=== PATIENT | female | born 1980 | race Caucasian/White ===

== ENCOUNTER 2017-03-11 10:40 | Observation (INO) | payer OTHER ==
[~2017-03-11] VITALS: Ht 157.5 cm; Wt 99.8 kg
[~2017-03-11 10:40] MED LIST: FLEXERIL10 MG PO; MEDROXYPRO150 MG/11 IM; MOTRIN 600 MG600 MG PO; PREDNISONE 20MG20 MG PO; XANAX0.5 M1 PO
--- NOTE | 2017-03-11 10:46 | ED GENERAL ADULT ---
See Addendum History of Present Illness General Chief Complaint: Nausea, Vomiting, Diarrhea Stated Complaint: BIBA N/V/D Source: patient Exam Limitations: no limitations Vital Signs & Intake/Output Vital Signs & Intake/Output Vital Signs Date Time Temp Pulse Resp B/P B/P Pulse O2 O2 Flow FiO2 Mean Ox Delivery Rate 03/11 1355 75 20 140/78 98 Room Air 03/11 1209 74 20 147/80 100 Room Air 03/11 1046 98.0 87 20 169/95 98 Room Air Allergies Coded Allergies: NO KNOWN ALLERGIES (09/20/13) Reconcile Medications Alprazolam (Xanax) 0.5 MG TABLET 1 TAB PO BID PRN ANXIETY Medroxyprogesterone Acetate 150 MG/1 ML SYRINGE 1 ML IM Q3M CONTROL ( Reported) Triage Nurses Notes Reviewed? yes Onset: Abrupt Duration: hour(s): Timing: recent history HPI: 03/11/17 11:01AM 36 female presents to the ED with abdominal pain, nausea, diarrhea with blood x 2 episodes since 6:30 this morning. Patient states pain was abrupt and severe described as similar to previous episodes recently. Abdominal pain is constant. Patient denies dysuria. Uses depo for contraception. The onset of the symptoms were abrupt, the duration was just the past several hours, the severity is significant; as her symptoms required her to come to the emergency department for care. She has associated nausea vomiting and diarrhea. The patient is status post upper and lower endoscopy. She was told that she has irritable bowel syndrome. Past History Travel History Traveled to [place] past 21 day No Medical History Any Pertinent Medical History? see below for history Neurological: NONE EENT: NONE Cardiovascular: NONE Respiratory: NONE Gastrointestinal: abdominal pain Hepatic: NONE Renal: NONE Musculoskeletal: NONE Psychiatric: NONE Endocrine: NONE Surgical History Surgical History: none Psychosocial History What is your primary language Armenian Family History Hx Contributory? No Review of Systems Review of Systems Constitutional: Denies: fever. EENTM: Reports: no symptoms. Respiratory: Reports: no symptoms. Cardiovascular: Reports: no symptoms. GI: Reports: abdominal pain, diarrhea, nausea, bloody stool, vomiting. Genitourinary: Reports: no symptoms. Musculoskeletal: Reports: no symptoms. Skin: Reports: no symptoms. Neurological/Psychological: Reports: no symptoms. Hematologic/Endocrine: Reports: bleeding. Immunologic/Allergic: Reports: no symptoms. Physical Exam Physical Exam General Appearance: well developed/nourished, alert, awake, anxious, moderate distress Head: atraumatic, normal appearance, dry mucous membranes Eyes: Bilateral: normal appearance, PERRL, EOMI. Ears, Nose, Throat: normal pharynx, dry mucous membranes Neck: full range of motion Respiratory: normal breath sounds, no respiratory distress Cardiovascular: regular rate/rhythm Gastrointestinal: soft, tenderness, no rebound or guarding. Epigastric abdominal tenderness Back: normal range of motion Extremities: no edema Neurologic/Psych: no motor/sensory deficits, awake, alert, oriented x 3 Skin: intact, normal color, diaphoresis Core Measures ACS in differential dx? No CVA/TIA Diagnosis: No Severe Sepsis Present: No Septic Shock Present: No Progress Differential Diagnoses I considered the following diagnoses in my evaluation of the patient: [ gastroenteritis, IBS, pancreatitis, colitis, diverticulitis, gastritis, PUD, appendicitis, , pyelonephritis, opiate withdrawal] Plan of Care: Orders Procedure Date/time Status EKG 03/11 1148 Active URINALYSIS 03/11 1059 Complete LIPASE 03/11 1059 Complete HUMAN BETA HCG SCREEN 03/11 1059 Complete COMPREHENSIVE METABOLIC PANEL 03/11 1059 Complete CBC WITHOUT DIFFERENTIAL 03/11 1059 Complete AMYLASE 03/11 1059 Complete Laboratory Tests 03/11/17 1240: Urinalysis LIGHT H, Urine Color YEL, Urine Clarity CLEAR, Urine pH 6.5, Ur Specific [place] 1.020, Urine Protein NEG, Urine Ketones TRACE H, Urine Nitrite NEG, Urine Bilirubin NEG, Urine Urobilinogen 0.2, Ur Leukocyte Esterase NEG, Ur Microscopic SEDIMENT EXAMINED, Urine RBC 1-3, Ur Epithelial Cells MANY H, Urine Bacteria MOD H, Urine Mucus MOD H, Urine Hemoglobin TRACE-LYSED, Urine Glucose NEG 03/11/17 1112: Anion Gap 13, Estimated GFR > 60, BUN/Creatinine Ratio 28.3 H, Glucose 130 H, Calcium 9.6, Total Bilirubin 0.5, AST 22, ALT 26, Alkaline Phosphatase 62, Total Protein 7.2, Albumin 4.5, Globulin 2.7, Albumin/Globulin Ratio 1.7, Amylase 98, Lipase 99, Total Beta HCG NEGATIVE, CBC w Diff NO MAN DIFF REQ, RBC 4.91, MCV 91.9, MCH 30.3, RDW 14.2, MPV 7.1 L, Gran % 80.1 H, Lymphocytes % 14.5 L, Monocytes % 4.3, Eosinophils % 0.2, Basophils % 0.9, Absolute Granulocytes 6.2, Absolute Lymphocytes 1.1 L, Absolute Monocytes 0.3, Absolute Eosinophils 0, Absolute Basophils 0.1, PUBS MCHC 33.0 Initial ED EKG: none Departure Departure Disposition: STILL A PATIENT Condition: Stable Clinical Impression Primary Impression: Abdominal pain Referrals: PATIENT HAS NO PRIMARY CARE DR (PCP/Family) Departure Forms: Customer Survey General Discharge Information Comments The patient was treated with IV fluids, IV Dilaudid, IV Zofran, and IV Protonix. Labs were sent and she'll be reevaluated. Labs unremarkable. Patient's pain is better. CT of the abdomen and pelvis was unremarkable. Other than small hiatal hernia PATIENT: MISAEL VILLA PRESENT AGE: 36 PATIENT ACCOUNT NO: [id number] : 78 LOCATION: [facility] ORDERING PHYSICIAN: FREDDIE GATES DO SERVICE DATE: 03/11/17 EXAM TYPE: CAT - CT ABD & PELVIS W IV CONTRAST EXAMINATION: CT ABDOMEN AND PELVIS WITH CONTRAST CLINICAL INFORMATION: Abdominal pain. COMPARISON: 09/21/2013. TECHNIQUE: Contiguous axial thin section helical images of the abdomen and pelvis were performed following the administration of 95 mL of intravenous Optiray 320. The data set was reformatted in the coronal and sagittal planes and reviewed on an independent workstation. DLP: 1086 mGy-cm. FINDINGS: The visualized lung bases are clear. The visualized portions of the heart are unremarkable. There is a [id number] sized hiatal hernia. The liver is of normal size and attenuation without focal lesions nor intrahepatic biliary ductal dilation. A normal gallbladder is identified. There is no wall thickening or discernible pericholecystic fluid. The spleen, pancreas, adrenal glands are unremarkable. Both kidneys are of normal size and attenuation without hydronephrosis or nephrolithiasis. Following the administration of IV contrast, prompt symmetric nephrograms are displayed. There is no abdominal free fluid. There is neither mesenteric nor retroperitoneal lymphadenopathy. There is a retroaortic left renal vein. Normal unopacified loops of small and large bowel are identified. A normal appendix is identified. There is no pelvic free fluid. The urinary bladder is unremarkable. There is neither pelvic nor inguinal lymphadenopathy. Bone windows: Neither sclerotic nor lytic bone lesions are identified. IMPRESSION: No evidence for acute abdominal or pelvic inflammatory or infectious processes. Specifically, a normal appendix is identified. [id number]-ql-[id number] sized hiatal hernia. DICTATED BY: DIANE JAIMES MD DATE/TIME DICTATED:03/11/171418 PAD CUTTER:SONDRA DATE/TIME TRANSCRIBED:03/11/171418 CONFIDENTIAL, DO NOT COPY WITHOUT APPROPRIATE AUTHORIZATION. <Electronically signed in Other Vendor System> SIGNED BY: DIANE JAIMES MD 03/11/17 1428 Critical Care Note Critical Care Note Critical Care Time: non-applicable
[2017-03-11 11:20] LABS: ABSOLUTE BASOPHIL COUNT 0.1 /CUMM (0.0-0.2); ABSOLUTE EOSINOPHIL COUNT 0 /CUMM (0.0-0.7); ABSOLUTE GRANULOCYTE CT 6.2 /CUMM (1.4-6.5); ABSOLUTE LYMPH COUNT 1.1 /CUMM (1.2-3.4); ABSOLUTE MONOCYTE COUNT 0.3 /CUMM (0.10-0.60); BASOPHIL % 0.9 % (0.0-2.0); EOSINOPHIL % 0.2 % (0-5); GRANULOCYTE % 80.1 % (42.2-75.2); HEMATOCRIT 45.1 % (37-47); MEAN CORPUSCULAR HGB 30.3 PG (27.0-31.0); MEAN CORPUSCULAR VOLUME 91.9 FL (81.0-99.0); MEAN PLATELET VOLUME 7.1 FL (7.4-10.4); PLATELET COUNT 320 /CUMM (130-400); RBC DISTRIBUTION WIDTH 14.2 % (11.5-14.5); RED BLOOD CELL CT 4.91 /CUMM (4.20-5.40); WHITE BLOOD CELL COUNT 7.7 /CUMM (4.8-10.8)
--- NOTE | 2017-03-11 14:28 | CT SCAN REPORT ---
EXAMINATION: CT ABDOMEN AND PELVIS WITH CONTRAST CLINICAL INFORMATION: Abdominal pain. COMPARISON: 09/21/2013. TECHNIQUE: Contiguous axial thin section helical images of the abdomen and pelvis were performed following the administration of 95 mL of intravenous Optiray 320. The data set was reformatted in the coronal and sagittal planes and reviewed on an independent workstation. DLP: 1086 mGy-cm. FINDINGS: The visualized lung bases are clear. The visualized portions of the heart are unremarkable. There is a cxwsq-kv-kurplzdr sized hiatal hernia. The liver is of normal size and attenuation without focal lesions nor intrahepatic biliary ductal dilation. A normal gallbladder is identified. There is no wall thickening or discernible pericholecystic fluid. The spleen, pancreas, adrenal glands are unremarkable. Both kidneys are of normal size and attenuation without hydronephrosis or nephrolithiasis. Following the administration of IV contrast, prompt symmetric nephrograms are displayed. There is no abdominal free fluid. There is neither mesenteric nor retroperitoneal lymphadenopathy. There is a retroaortic left renal vein. Normal unopacified loops of small and large bowel are identified. A normal appendix is identified. There is no pelvic free fluid. The urinary bladder is unremarkable. There is neither pelvic nor inguinal lymphadenopathy. Bone windows: Neither sclerotic nor lytic bone lesions are identified. IMPRESSION: No evidence for acute abdominal or pelvic inflammatory or infectious processes. Specifically, a normal appendix is identified. Oczsv-[id number] sized hiatal hernia.
[2017-03-11] MEDS ORDERED: REGLAN10 M1 PO (15:21)
--- NOTE | 2017-03-11 19:37 | History & Physical ---
NIMESH HERNANDEZ MD 03/11/171935: General Information and HPI MD Statement: I have seen and personally examined MISAEL VILLA and documented this H&P. The patient is a 36 year old F who presented with a patient stated chief complaint of [intractable abdominal pain, nausea, vomiting, diarrhea]. Source of Information: patient Exam Limitations: no limitations History of Present Illness: 36-year-old female, with past medical history of irritable bowel syndrome, status post upper endoscopy and, colonoscopy, hemorrhoids, anxiety, presented for nausea, vomiting, diarrhea, abdominal pain. She woke up at 6:30 AM in the morning with nausea, and has vomited at least 10 times, initially vomited juice and chunks of food from the night prior. She has not been eating all day, and now is only dry heaving. She also had 4-5 episodes of diarrhea, blood in the stool. However in the past she has had blood mixed with her stool. Yesterday, she ate [employer] for lunch and homemade hot dog for dinner. She is experiencing periumbilical pain, mostly above the umbilicus, rated as 8 out of 10, crampy, sharp, constant. This pain is different from her chronic abdominal pain. 2 years ago, she was admitted at [place] for similar symptoms, for which upper endoscopy and colonoscopy was done, which did not reveal any significant findings. Patient was prescribed Augmentin on 02/26/2017 for sinusitis. She did not take the last 2 pills because she developed diarrhea and yeast infection. Patient takes Xanax for anxiety. She has been advised to take Klonopin instead, but has refused. CT INSPECTOR BALANCE BRIDGE reviewed. She was prescribed 15 pills of 0.5 mg clonazepam on 12/26/2016 with 1 refill, filled on 12/26/2016 and 02/06/2017. She was prescribed 30 pills of alprazolam 0.5 mg tablet on 08/26/2016 with 1 refill, filled on 08/26/2016 and 10/28/2016. These were prescribed by Abdoulaye Shelley. In the ED, she received 0.5 mg of IV Dilaudid, 1 mg of IV Dilaudid, 30 mg of IV Toradol, 20 mg of dicyclomine, 2 times Ativan, one time Reglan, 1 time Phenergan , one-time Zofran, one-time IV Protonix, 3 L of normal saline, none of which have significantly improve her symptoms. Israel Bonner MD from GI was contacted by the ED, and he recommended putting the patient under observation for intractable pain and nausea. Review of system, she reports feeling hot and cold, lightheaded, dizzy, short of breath. Past surgical history: Tonsillectomy Medications: Xanax, medroxyprogesterone, Lexapro, losartan Allergies: None Family history: Hypertension, and diabetes in both her parents Social history: She works at a [employer]. Denies alcohol, smoking, illicit drug use. Allergies/Medications Allergies: Coded Allergies: NO KNOWN ALLERGIES (09/20/13) Past History Travel History Traveled to [place] past 21 day No Medical History Neurological: NONE EENT: NONE Cardiovascular: NONE Respiratory: NONE Gastrointestinal: irritable bowel syndrome, hemorrhoids Hepatic: NONE Renal: NONE Musculoskeletal: NONE Psychiatric: NONE Endocrine: NONE Surgical History Surgical History: none Past Family/Social History Family History Relations & Conditions if any MOTHER FH: diabetes mellitus FH: hypertension FATHER FH: diabetes mellitus FH: hypertension Psychosocial History Where do you live? Home Smoking Status: Never Smoked ETOH Use: denies use Illicit Drug Use: denies illicit drug use Functional Ability ADLs Independent: dressing, eating, toileting, bathing. Ambulation: independent IADLs Independent: shopping, housework, finances, food prep, telephone, transportation , medication admin. Review of Systems Review of Systems Constitutional: Reports: see HPI, chills, fever. EENTM: Denies: visual changes. Cardiovascular: Denies: chest pain, edema, palpitations. Respiratory: Reports: short of breath. Denies: cough. GI: Reports: abdominal pain, diarrhea, nausea, bloody stool, vomiting. Genitourinary: Denies: dysuria. Exam & Diagnostic Data Last 24 Hrs of Vital Signs/I&O Vital Signs Date Time Temp Pulse Resp B/P B/P Pulse O2 O2 Flow FiO2 Mean Ox Delivery Rate 03/110 97.5 93 19 124/78 99 Room Air 03/112 Room Air 03/11 2055 97.3 89 18 147/76 99 Room Air 03/11 1545 70 20 138/72 98 03/11 1355 75 20 140/78 98 Room Air 03/11 1209 74 20 147/80 100 Room Air 03/11 1046 98.0 87 20 169/95 98 Room Air Intake & Output 03/12 0800 03/12 0000 03/11 1600 Intake Total 556 715 2584 Output Total Balance 898 318 1238 Intake, IV 800 1000 Intake, Oral 0 120 Patient 99.79 kg 99.79 kg Weight Physical Exam General Appearance Alert, Oriented X3, Cooperative, Mild Distress Skin No Rashes, No Breakdown, No Significant Lesion Skin Temp/Moisture Exam: Warm/Dry Sepsis Skin Exam (color): Normal for Ethnicity HEENT Atraumatic, PERRLA, EOMI, dry mucous membranes Neck Supple, No JVD, +2 Carotid Pulse wo Bruit, No LAD Lymphatic Axillary nl, Cervical nl Cardiovascular Regular Rate, Normal S1, Normal S2, No Murmurs, Gallops, Rubs Lungs Clear to Auscultation, Normal Air Movement Abdomen Normal Bowel Sounds, Soft, tender over periumbilical area, just above the umbilicus Neurological Normal Speech, Strength at 5/5 X4 Ext Extremities No Edema Vascular Normal Pulses, Pulses Symmetrical Last 24 Hrs of Labs/Humberto: 03/11/17 2220: Lactic Acid 1.5 03/11/17 1240: Urine Opiates Screen 268.00, Methadone Screen 49, Barbiturate Screen < 60, Ur Phencyclidine Scrn < 6.00, Amphetamines Screen < 100, U Benzodiazepines Scrn < 85, Urine Cocaine Screen < 50, Urine Cannabis Screen > 80.00 H, Urinalysis LIGHT H, Urine Color YEL, Urine Clarity CLEAR, Urine pH 6.5, Ur Specific [place] 1.020, Urine Protein NEG, Urine Ketones TRACE H, Urine Nitrite NEG, Urine Bilirubin NEG, Urine Urobilinogen 0.2, Ur Leukocyte Esterase NEG, Ur Microscopic SEDIMENT EXAMINED, Urine RBC 1-3, Ur Epithelial Cells MANY H, Urine Bacteria MOD H, Urine Mucus MOD H, Urine Hemoglobin TRACE-LYSED, Urine Glucose NEG 03/11/17 1112: Anion Gap 13, Estimated GFR > 60, BUN/Creatinine Ratio 28.3 H, Glucose 130 H, Lactic Acid 2.3 H, Calcium 9.6, Total Bilirubin 0.5, AST 22, ALT 26, Alkaline Phosphatase 62, Total Protein 7.2, Albumin 4.5, Globulin 2.7, Albumin/Globulin Ratio 1.7, Amylase 98, Lipase 99, Total Beta HCG NEGATIVE, CBC w Diff NO MAN DIFF REQ, RBC 4.91, MCV 91.9, MCH 30.3, RDW 14.2, MPV 7.1 L, Gran % 80.1 H, Lymphocytes % 14.5 L, Monocytes % 4.3, Eosinophils % 0.2, Basophils % 0.9, Absolute Granulocytes 6.2, Absolute Lymphocytes 1.1 L, Absolute Monocytes 0.3, Absolute Eosinophils 0, Absolute Basophils 0.1, PUBS MCHC 33.0 Microbiology 03/12 0013 STOOL: Clostridium difficile Toxin A & B - COLB Diagnostic Data EKG Results EKG revealed normal sinus rhythm, heart rate of 78, no ST-T changes, normal axis , QTC of 433 and IN interval of 144. Other Results EXAM TYPE: CAT - CT ABD & PELVIS W IV CONTRAST EXAMINATION: CT ABDOMEN AND PELVIS WITH CONTRAST CLINICAL INFORMATION: Abdominal pain. COMPARISON: 09/21/2013. TECHNIQUE: Contiguous axial thin section helical images of the abdomen and pelvis were performed following the administration of 95 mL of intravenous Optiray 320. The data set was reformatted in the coronal and sagittal planes and reviewed on an independent workstation. DLP: 1086 mGy-cm. FINDINGS: The visualized lung bases are clear. The visualized portions of the heart are unremarkable. There is a [id number]-vb-vswynokc sized hiatal hernia. The liver is of normal size and attenuation without focal lesions nor intrahepatic biliary ductal dilation. A normal gallbladder is identified. There is no wall thickening or discernible pericholecystic fluid. The spleen, pancreas, adrenal glands are unremarkable. Both kidneys are of normal size and attenuation without hydronephrosis or nephrolithiasis. Following the administration of IV contrast, prompt symmetric nephrograms are displayed. There is no abdominal free fluid. There is neither mesenteric nor retroperitoneal lymphadenopathy. There is a retroaortic left renal vein. Normal unopacified loops of small and large bowel are identified. A normal appendix is identified. There is no pelvic free fluid. The urinary bladder is unremarkable. There is neither pelvic nor inguinal lymphadenopathy. Bone windows: Neither sclerotic nor lytic bone lesions are identified. IMPRESSION: No evidence for acute abdominal or pelvic inflammatory or infectious processes. Specifically, a normal appendix is identified. [id number] sized hiatal hernia. DICTATED BY: DIANE JAIMES MD DATE/TIME DICTATED:03/11/171418 EXAM TYPE: US - US-LIMITED ABDOMEN EXAMINATION: US ABDOMEN LIMITED CLINICAL INFORMATION: Abdominal pain.. COMPARISON: None TECHNIQUE: Real-time imaging of the right upper quadrant abdominal viscera. FINDINGS: PANCREAS: The body and head of pancreas is homogeneous in echotexture. The talus obscured by overlying gas. LIVER: The liver is enlarged and has increased echogenicity. No focal mass or intrahepatic ductal dilatation seen. GALLBLADDER: Normal. The gallbladder is physiologically distended without evidence of stones, sludge, polyps, wall thickening or pericholecystic fluid. COMMON BILE DUCT: Normal in caliber measuring 0.34 cm in diameter. RIGHT KIDNEY: Normal. No hydronephrosis. No renal calculi or focal parenchymal lesions. The kidney measures 10.8 cm in maximum dimension. FREE FLUID: None. IMPRESSION: Enlarged echogenic liver without focal lesion. Findings suspicious for early hepatic steatosis. Rest of the visualized limited abdomen exam is unremarkable. DICTATED BY: SWATI VARGAS,ELIDIA DATE/TIME DICTATED:03/11/171931 Assessment/Plan Assessment: 36-year-old female, with past medical history of irritable bowel syndrome, status post upper endoscopy and, colonoscopy, hemorrhoids, anxiety, presented for nausea, vomiting, diarrhea, abdominal pain. In the ED, she received 0.5 mg of IV Dilaudid, 1 mg of IV Dilaudid, 30 mg of IV Toradol, 20 mg of dicyclomine, 2 times Ativan, one time Reglan, 1 time Phenergan, one-time Zofran, one-time IV Protonix, 3 L of normal saline, none of which have significantly improve her symptoms. Israel Bonner MD from GI was contacted by the ED, and he recommended putting the patient under observation for intractable pain and nausea. Imaging so far is unrevealing, specifically no evidence of acute abdominal pelvic inflammation, infection,with normal appearing appendix. Ultrasound shows enlarged liver, possibly early hepatic steatosis. Symptoms are most likely due to underlying irritable bowel syndrome, with possible viral gastroenteritis. Given recent history of antibiotic use, C. difficile colitis remains in differential. Patient will be kept nothing by mouth. She will remain under observation pending improvement of nausea, abdominal pain, and diarrhea. Pending C. difficile results. Problem list: # Intractable abdominal pain, nausea, vomiting, diarrhea # Hypertension # Anxiety and depression # Intractable abdominal pain, nausea, vomiting, diarrhea - lactic acid was elevated at 2.3 on presentation to the ED, has come down to 1.5 with IVF * Place in inpatient observation * Phenergan 25 mg every 4, when necessary Zofran 4 mg every 6 nausea * IV Protonix * Toradol 50 mg twice a day PRN severe pain, IV Tylenol moderate pain, by mouth Tylenol mild pain. Avoid opiates if possible * Consider GI consult * Follow-up C. difficile * 100 mL per hour 3 bags * Follow off antibiotics * Nothing by mouth, advanced diet as tolerated, clear liquid in am # Hypertension * Continue Losartan 25 mg daily # Anxiety and depression - CTPMP reviewed, she was prescribed 15 pills of 0.5 mg clonazepam on 12/26/2016 with 1 refill, filled on 12/26/2016 and 02/06/2017. She was prescribed 30 pills of alprazolam 0.5 mg tablet on 08/26/2016 with 1 refill, filled on 08/26/2016 and 10/28/2016. These were prescribed by Abdoulaye Shelley. - Utox + cannabis * Continue Lexapro 20 mg daily, Xanax 0.5 mg twice a day when necessary anxiety * Melatonin 5 mg at bedtime Diet: NPO PP: Toradol 50 mg twice a day PRN severe pain, IV Tylenol moderate pain, by mouth Tylenol mild pain DVT ppx: alps and heparin sc FULL CODE As Ranked By This Provider Problem List: 1. Abdominal pain Core Measures/Miscellaneous Acute Coronary Syndrome ACS Diagnosis: No Cerebrovascular Accident CVA/TIA Diagnosis: No Congestive Heart Failure CHF Diagnosis: No Venous Thromboembolism VTE Risk Factors: Obesity No Mech VTE prophylaxis d/t: No contraindications No VTE Pharm Prophylaxis d/t: No contraindications VTE Diagnosis: No VTE Type: NONE VTE Confirmed by (Test): NONE Severe Sepsis Severe Sepsis Present: No Septic Shock Septic Shock Present: No Miscellaneous Documentation Attending Case Discussed With: ALCIDES GALLAGHER MD Primary Care Physician: PATIENT HAS NO PRIMARY CARE DR Patient sees these Specialists Abdoulaye Shelley NP Level of Patient Care: General Medicine IDALIA PRESTON 03/11/17 2002: General Information and HPI Allergies/Medications Home Med list Alprazolam (Xanax) 0.5 MG TABLET 1 TAB PO BID PRN ANXIETY Escitalopram Oxalate (Lexapro) 20 MG TABLET 1 TAB PO DAILY MENTAL HEALTH ( Reported) Losartan Potassium 25 MG TABLET 1 TAB PO DAILY HTN (Reported) Medroxyprogesterone Acetate 150 MG/1 ML SYRINGE 1 ML IM Q3M CONTROL ( Reported) Metoclopramide HCl (Reglan) 10 MG TABLET 1 TAB PO 4 TIMES/DAY PRN nausea 30 minutes before meals and bedtime Resident Review Statement Resident Statement: examined this patient, discussed with mechanical engineering intern, agreed with mechanical engineering intern, discussed with family, reviewed EMR data (avail), discussed with nursing , discussed with case mgmt, reviewed images, amended to note Other Findings: 36-year-old female with a past medical history of anxiety, irritable bowel syndrome presented to the ED with chief was abdominal pain, nausea, diarrhea with bloody episodes since 6:30 this morning. According to the patient she was in her usual state of health up until his morning at around 6:30 AM she started to have intractable nausea and vomiting as well as bloody diarrhea. She states that she's had about 10 episodes of bilous vomiting and is bringing up whatever she had last night. Of note she had [employer] yesterday for lunch and had hot dogs for dinner last night. She also endorses abdominal pain that she describes as being crampy, rating it at an 8 out of 10; endorses intermittent fever and chills. She does endorse dizziness and headache, however, denies any shortness of breath, chest discomfort, palpitations, urinary complaints including burning micturition. She states that she does have blood in her stools that is mixed and has had intermittent episodes since she was diagnosed with irritable bowel syndrome about 2 years ago when she underwent an upper and lower endoscopy at [place]. She does not F/U with GI doctor. SHe dneies using any recreational drugs, smoking, RR 18. As far as her occupation she works at a [employer]. Surgical history pertinent for a tonsillectomy when she was a child. Family history pertinent for hypertension and diabetes in her family. Of note she was treated with Augmentin which she stopped taking it she started to experience diarrhea. For rest of the history and physical please refer to Dr. Hernandez's note above. Of note patient is status post upper and lower endoscopy and was told that she has irritable bowel syndrome. Vitals at the time of admission blood pressure 138/72, respiratory rate 20, pulse 70, saturating 98% on room air. On physical exam she is alert and oriented 3 and in mild distress sitting, in bed. HEENT revealed PERRLA, dry mucous membranes. Examination of the neck did not reveal an elevated JVP, no cervical lymphadenopathy.Cardiovascular exam pertinent for normal S1, S2, no murmurs rubs or gallops appreciated. Respiratory exam was benign with chest clear to auscultation bilaterally. Abdominal exam pertinent for tenderness to palpation in the periumbilical area, Jhaveri's was negative. Bowel sounds were normal in all 4 quadrants. Abdomen was soft. Examination of the lower extremities did not reveal any edema, pulses were intact bilaterally. Neuro exam was grossly unremarkable. Labs pertinent for an H&H of 14.9/41.5, white blood cell count of 7.7, platelet count of 320,000. Serum chemistries pertinent for sodium of 140, potassium of 4.9, bicarbonate of 22, anion gap of 13, BUN 17 and creatinine of 0.6 with serum glucose of 1:30. She is unremarkable with AST/L2 22/56, alkaline phosphatase of 62, beta-hCG is negative. UA revealed trace amount of ketones, for nitrite and leukocyte esterase. A moderate amount of bacteriuria and mucus. CAT scan of the abdomen and pelvis revealed no evidence of acute pulmonary abdominal pelvic inflammatory or infectious process, did have small to moderate- sized hiatal hernia Abdominal ultrasound showed an enlarged echogenic liver without focal lesion, findings suspicious for early hepatic steatosis. Gallbladder is physiologically distended without evidence of stones large polyps wall thickening or pericholecystic fluid. EKG revealed normal sinus rhythm, heart rate of 78, no ST-T changes, normal axis , QTC of 433 and IN interval of 144. In the ER she received normal saline bolus of thousand mL 1, Protonix 40 mg IV by mouth, Dilaudid 1 mg IV 1, Bentyl 20 mg by mouth 1. Assessment and plan Place under observation on general medicine. #Intractable nausea, vomiting and diarrhea in the setting of abdominal pain. Differentials include gasteroenteritis vs gastritis vs IBS flare vs cholecystitis (Jhaveri's was negative), pancreatitis (unlikley as lipase was negative). Will hydrate her either NS@100mls/hr F/U repeat lactic acid Sympyommatic treatment iwth Phenargan for nausea, Protonix 40mg IV NPO fo now. Check U tox, stool for C. Diff toxin. Will check CTPMP, and avoid narcotics for now. #Hypertension Continue on her home medications of Cozaar 25 mg daily #Anxiety Continue on his citalopram 20 mg daily, and Xanax 0.5 mg twice a day when necessary by mouth - DVT prophylaxis Heparin 5000units 3 times a day subcutaneous Diet Nothing by mouth for now Advance diet as tolerated next line CODE STATUS Full code ALCIDES GALLAGHER 03/12/17 0323: Attending MD Review Statement Attending Statement Attending MD Statement: examined this patient, discuss w/resident/PA/PRODUCTION SAMPLER, agreed w/resident/PA/PRODUCTION SAMPLER, reviewed EMR data (avail), reviewed images, amended to note Attending Assessment/Plan: CC: abdo pain, nausea, vomiting, diarrhea PMH: IBS-d, anxiety, vertigo, HTN Patient has chronic diarrhea secondary to IBS but this morning she noticed more frequent watery stools 4-5 in number, nausea, 10 times vomiting, nonbloody, nonbilious. She noticed some blood in her stool, mixed with stool, no associated dizziness, loss of consciousness, presyncopal symptoms. Patient complains of abdominal pain just above her umbilicus, nonradiating, non-shifting. Off note patient was recently treated for sinusitis with Augmentin, she stopped it secondary to yeast infection and diarrhea. Vitals: Afebrile, pulse, RF, blood pressure, O2 saturation in acceptable range. On examination: A O 3, cooperative, obese, no acute distress, neck supple, JVD normal, no lymphadenopathy, mucosa dry, no focal neurological deficit, no dependent edema, no obvious skin rashes or inflammation CVS: S1-S2, RRR. RS: Clear to auscultate bilaterally. Abdomen: Soft, NT, ND, bowel sounds present. Labs: WBC 7.7 with neutrophils 80%, hemoglobin 14.9, hematocrit 45.1, platelets 320, bicarbonate 22, anion gap 13, BUN 17, creatinine 0.6, glucose 130, calcium 9.6, LFT unremarkable, lactate 2.3, lipase 99. UA positive for ketones CT abdomen and pelvis: No evidence for acute abdominal or pelvic inflammatory or infectious processes. Specifically, a normal appendix is identified. Small-to- moderate sized hiatal hernia. Ultrasound abdomen: Enlarged echogenic liver without focal lesion. Findings suspicious for early hepatic steatosis. Rest of the visualized limited abdomen exam is unremarkable. A and P 36-year-old female with a past medical history significant for IBS-d, comes for nausea vomiting diarrhea and abdominal pain. Patient does not have any significant volume contraction on examination or on BMP, LFT unremarkable, lipase normal, CT abdomen and ultrasound abdomen is unremarkable no obvious cause of nausea vomiting diarrhea is noticed patient did not have any further episodes once admitted. Probably symptoms are related to IBS. Patient received Dilaudid, Zofran, Protonix, normal saline, Phenergan, Bentyl, Reglan, Toradol in ER. Given her recent use of antibiotics it is appropriate to check C. difficile given her diarrhea + Diarrhea + Nausea vomiting + Abdominal pain - Place in observation in general medicine floor - Continue gentle hydration with IV normal saline - Continue Zofran as required - Trend lactate - Nothing by mouth for tonight, advance clears in morning - Continue Protonix 40 mg by mouth daily - Check C. difficile, U tox - Review patient on CT/DCP, avoid opiates if possible - Continue home doses of alprazolam, Lexapro and losartan.
[2017-03-11] MEDS ORDERED: LOSARTAN POTASS25 M1 PO (21:09)
[2017-03-11] MEDS ORDERED: LEXAPRO20 M1 PO (21:10)
[2017-03-11 22:30] VITALS: BP 124/78
[2017-03-12 07:18] VITALS: BP 112/70
--- NOTE | 2017-03-12 07:35 | PN- Housestaff ---
QUOC VARGAS,ROSALBA 03/12/17 0735: Subjective Follow-up For: Following up observation for Intractable nausea, vomiting, diarrhea, abdominal pain per admitting note. Subjective: I followed up and examined the patient today. She is resting comfortably in chair, not in distress. She mentioned that her last bowel movement was yesterday 9:30 AM and although see was nauseous at times, her last vomiting episode was at 9 PM yesterday. Nausea is intermittent and C does not have any abdominal pain currently. She thinks that she is already doing much better. She has been tolerating oral diet and her vitals are stable with no overnight issues. Review of Systems Constitutional: Reports: see HPI. Gastrointestinal: Reports: nausea. Denies: abdominal pain, diarrhea, vomiting. Objective Last 24 Hrs of Vital Signs/I&O Vital Signs Date Time Temp Pulse Resp B/P B/P Pulse O2 O2 Flow FiO2 Mean Ox Delivery Rate 03/12 1455 98.0 75 18 120/80 98 Room Air 03/12 0916 70 112/68 03/12 0718 98.7 69 18 112/70 96 03/11 2230 97.5 93 19 124/78 99 Room Air 03/11 2142 Room Air 03/11 2055 97.3 89 18 147/76 99 Room Air Intake & Output 03/12 1600 03/12 0800 03/12 0000 Intake Total 1300 800 120 Output Total Balance 1300 800 120 Intake, IV 800 800 Intake, Oral 500 0 120 Patient 99.79 kg Weight Physical Exam General Appearance: Alert, Oriented X3, Cooperative, No Acute Distress, obese Other Physical Findings: Skin No Rashes, No Breakdown, No Significant Lesion Skin Temp/Moisture Exam: Warm/Dry HEENT Atraumatic, PERRLA, moist mucous membranes Neck Supple, No JVD Lymphatic Cervical nl Cardiovascular Regular Rate, Normal S1, Normal S2, No Murmurs Lungs Clear to Auscultation, Normal Air Movement Abdomen Normal Bowel Sounds, Soft, non- tender Neurological Normal Speech, Strength at 5/5 X4 Ext, grossly intact Extremities No Edema Vascular Normal Pulses, Pulses Symmetrical Current Medications: Current Medications Sig/Shravan Start time Last Medication Dose Route Stop Time Status Admin Acetaminophen 650 MG Q6P PRN 03/11 2030 AC PO Acetaminophen 1,000 MG Q6P PRN 03/11 2030 AC IV Alprazolam 0.5 MG BID PRN 03/12 0015 AC PO 03/19 0014 Dicyclomine HCl 20 MG ONCE ONE 03/11 1715 DC PO 03/11 1716 Dicyclomine HCl 20 MG ONCE ONE 03/11 1600 DC 03/11 PO 03/11 1601 1557 Escitalopram Oxalate 20 MG DAILY 03/12 1000 AC PO Heparin Sodium 5,000 UNIT Q8 03/11 2200 AC (Porcine) SC Hydromorphone HCl 0.5 MG Q4P PRN 03/11 2030 DC IV Hydromorphone HCl 0 .STK-MED ONE 03/11 1317 DC .ROUTE Hydromorphone HCl 1 MG ONCE ONE 03/11 1315 DC 03/11 IV 03/11 1316 1316 Hydromorphone HCl 0 .STK-MED ONE 03/11 1111 DC .ROUTE Hydromorphone HCl 0.5 MG ONCE ONE 03/11 1100 DC 03/11 IV 03/11 1101 1110 Ketorolac 15 MG BID PRN 03/12 0030 AC Tromethamine IV Ketorolac 0 .STK-MED ONE 03/11 203 DC Tromethamine .ROUTE Ketorolac 30 MG ONCE ONE 03/11 2015 DC 03/11 Tromethamine IV 03/11 2016 2040 Lorazepam 1 MG ONE ONE 03/11 1715 DC PO 03/11 1716 Lorazepam 1 MG ONE ONE 03/11 1600 DC 03/11 PO 03/11 1601 1557 Lorazepam 0 .STK-MED ONE 03/11 1556 DC PO Losartan Potassium 25 MG DAILY 03/12 1000 AC PO Melatonin 5 MG AT BEDTIME 03/11 2200 AC 03/11 PO 2157 Metoclopramide HCl 10 MG ONCE ONE 03/11 1900 DC 03/11 PO 03/11 1901 1849 Metoclopramide HCl 0 .STK-MED ONE 03/11 1834 DC PO Metoclopramide HCl 0 .STK-MED ONE 03/11 1530 DC PO Morphine Sulfate 2 MG Q6P PRN 03/11 2115 DC 03/11 IV 2130 Ondansetron HCl 4 MG Q6P PRN 03/11 2115 AC 03/11 IV 2130 Ondansetron HCl 0 .STK-MED ONE 03/11 1110 DC .ROUTE Ondansetron HCl 4 MG ONCE ONE 03/11 1100 DC 03/11 IV 03/11 1101 1110 Pantoprazole Sodium 40 MG DAILY 03/12 1000 AC IV Pantoprazole Sodium 0 .STK-MED ONE 03/11 1111 DC IV Pantoprazole Sodium 40 MG ONCE ONE 03/11 1100 DC 03/11 IV 03/11 1101 1110 Promethazine HCl 25 MG Q4P PRN 03/11 2345 CAN IV 03/18 2344 Promethazine HCl 25 MG Q4 PRN 03/11 2345 AC 03/12 PO 03/18 2344 0005 Promethazine HCl 12.5 MG ONCE ONE 03/11 1130 DC 03/11 IV 03/11 1131 1126 Promethazine HCl 0 .STK-MED ONE 03/11 1127 DC .ROUTE Sodium Chloride 1,000 ML Q10H 03/11 2115 AC 03/12 IV 03/13 0314 0644 Sodium Chloride 1,000 ML BOLUS ONE 03/11 2015 DC 03/11 IV 03/11 2214 2139 Sodium Chloride 1,000 ML BOLUS ONE 03/11 1945 DC 03/11 IV 03/11 2044 2041 Sodium Chloride 1,000 ML BOLUS ONE 03/11 1100 DC 03/11 IV 03/11 1159 1110 Last 24 Hrs of Lab/Humberto Results Last 24 Hrs of Labs/Mics: Laboratory Tests 03/12/17 0618: Sodium Pending, Potassium Pending, Chloride Pending, Carbon Dioxide Pending, Anion Gap Pending, BUN Pending, Creatinine Pending, BUN/Creatinine Ratio Pending , CBC w Diff Pending, WBC Pending, RBC Pending, Hgb Pending, Hct Pending, MCV Pending, MCH Pending, RDW Pending, Plt Count Pending, MPV Pending, PUBS MCHC Pending 03/12/17 0013: Methadone Screen Cancelled, Barbiturate Screen Cancelled, Ur Phencyclidine Scrn Cancelled, Amphetamines Screen Cancelled, U Benzodiazepines Scrn Cancelled, Urine Cocaine Screen Cancelled, Urine Cannabis Screen Cancelled 03/11/17 2220: Lactic Acid 1.5 03/11/17 1240: Urine Opiates Screen 268.00, Methadone Screen 49, Barbiturate Screen < 60, Ur Phencyclidine Scrn < 6.00, Amphetamines Screen < 100, U Benzodiazepines Scrn < 85, Urine Cocaine Screen < 50, Urine Cannabis Screen > 80.00 H, Urinalysis LIGHT H, Urine Color YEL, Urine Clarity CLEAR, Urine pH 6.5, Ur Specific [place] 1.020, Urine Protein NEG, Urine Ketones TRACE H, Urine Nitrite NEG, Urine Bilirubin NEG, Urine Urobilinogen 0.2, Ur Leukocyte Esterase NEG, Ur Microscopic SEDIMENT EXAMINED, Urine RBC 1-3, Ur Epithelial Cells MANY H, Urine Bacteria MOD H, Urine Mucus MOD H, Urine Hemoglobin TRACE-LYSED, Urine Glucose NEG 03/11/17 1112: Anion Gap 13, Estimated GFR > 60, BUN/Creatinine Ratio 28.3 H, Glucose 130 H, Lactic Acid 2.3 H, Calcium 9.6, Total Bilirubin 0.5, AST 22, ALT 26, Alkaline Phosphatase 62, Total Protein 7.2, Albumin 4.5, Globulin 2.7, Albumin/Globulin Ratio 1.7, Amylase 98, Lipase 99, Total Beta HCG NEGATIVE, CBC w Diff NO MAN DIFF REQ, RBC 4.91, MCV 91.9, MCH 30.3, RDW 14.2, MPV 7.1 L, Gran % 80.1 H, Lymphocytes % 14.5 L, Monocytes % 4.3, Eosinophils % 0.2, Basophils % 0.9, Absolute Granulocytes 6.2, Absolute Lymphocytes 1.1 L, Absolute Monocytes 0.3, Absolute Eosinophils 0, Absolute Basophils 0.1, PUBS MCHC 33.0 Microbiology 03/12 0013 STOOL: Clostridium difficile Toxin A & B - COLB Assessment/Plan Assessment: 36-year-old female with past medical history of irritable bowel syndrome with predominantly diarrhea that affects her almost daily, hemorrhoids, anxiety, was taken in as observation patient to watch for control of diarrhea, nausea, and vomiting. Her abdominal pain has already subsided. For her irritable bowel syndrome, she was initially diagnosed at [place], but she would like to follow survey worker at [facility] as this is closer to her residence. As her symptoms has subsided, she can be safely discharged home with a follow-up with her regular primary care physician and a referral for survey worker at [place]. Also, she is advised to maintain a low-fat diet, exercise and try to lose weight as part of lifestyle modification for her obesity as her BMI is 40.2. Her depression can be followed up as an outpatient and referral has been provided for outpatient psychiatric services. No suicidal ideation, or homicidal ideation present. Problem List: 1. Diarrhea 2. IBS (irritable bowel syndrome) 3. Depression 4. Morbid obesity Pain Ratin Pain Location: - Pain Goal: Remain pain free Pain Plan: prn Tomorrow's Labs & Rationales: - YADY VARGAS,JOSE 03/12/17 1546: Attending MD Review Statement Attending Statement Attending MD Statement: examined this patient, discuss w/resident/PA/PRACTICE ADMINISTRATOR, agreed w/resident/PA/PRACTICE ADMINISTRATOR, reviewed EMR data (avail), discussed with nursing, discussed with case mgmt, amended to note Attending Assessment/Plan: Patient seen and examined. Resting comfortably eating lunch. Denies nausea vomiting. Denies abdominal pain. She reports feeling significantly better. She reports a history of irritable bowel syndrome and he is to follow-up with the survey worker at [place] in the past. She reports having a negative EGD and colonoscopy in the past. She reports last hospitalization for a severe episode such as this was treated years ago. She reports daily episodes of loose bowel movements but only in the morning. She does admit to periods of nausea vomiting on and off at baseline. She reports an intolerance to dairy products. She has been doing well overnight with no further symptoms. Chest had no bowel movement so far today. On exam she is not in any distress. Abdomen is soft, nontender with normal bowel sounds. Problems: 1. Irritable bowel syndrome 2. Small to moderate-sized hiatal hernia 3. Hepatic steatosis. 4. Depression Plan: -Patient medically stable to discharge home today. -She wishes to follow-up with the gastroenterology service here in therapy. She has been referred to the [facility] gastroenterology service for further management of her irritable bowel syndrome, hydration hernia and hepatic steatosis. -Her symptoms may be secondary to irritable bowel syndrome. She will also need monitoring of her hydration her hernia with the gastroenterology service. -She has been advised to maintain a low-fat diet, exercise and to lose weight. -Patient reports suboptimal control of her psychiatric symptoms with her current regimen for depression. She wishes to follow-up with an outpatient psychiatric service. She has been referred to [facility] outpatient psychiatric program.
[2017-03-12 08:05] LABS: ABSOLUTE BASOPHIL COUNT 0 /CUMM (0.0-0.2); ABSOLUTE EOSINOPHIL COUNT 0 /CUMM (0.0-0.7); ABSOLUTE LYMPH COUNT 1.7 /CUMM (1.2-3.4); ABSOLUTE MONOCYTE COUNT 0.7 /CUMM (0.10-0.60); PLATELET COUNT 266 /CUMM (130-400)
[2017-03-12 08:33] LABS: ABSOLUTE GRANULOCYTE CT 6.4 /CUMM (1.4-6.5); BASOPHIL % 0.5 % (0.0-2.0); EOSINOPHIL % 0 % (0-5); MEAN CORPUSCULAR HGB 30.7 PG (27.0-31.0); MEAN CORPUSCULAR HGB CONC 33.5 G/DL (33.0-37.0); MEAN CORPUSCULAR VOLUME 91.8 FL (81.0-99.0); MEAN PLATELET VOLUME 7.3 FL (7.4-10.4); RBC DISTRIBUTION WIDTH 14.4 % (11.5-14.5); RED BLOOD CELL CT 4.29 /CUMM (4.20-5.40); WHITE BLOOD CELL COUNT 8.8 /CUMM (4.8-10.8)
[2017-03-12 08:38] LABS: HEMATOCRIT 39.4 % (37-47)
--- NOTE | 2017-03-12 14:24 | Patient Discharge Instructions ---
Discharge Instructions General Discharge Information You were seen/treated for: IBS with diarrhea and abdominal pain You had these procedures: none Special Instructions: Please follow up with your PCP in 1 week Please follow up with the Gastroenetrologist-please see referral Please follow up with the Psychiatrist-Please see referral Diet Continue normal diet: Yes Recommended Diet: Heart Healthy Activity Activity Self Limited: Yes Acute Coronary Syndrome Inclusion Criteria At DC or during hospital stay patient has or had the following: ACS DIAGNOSIS No Discharge Core Measures Meds if any: Prescribed or Continued at Discharge Meds if any: NOT Prescribed or Continued at Discharge Congestive Heart Failure Inclusion Criteria At DC or during hospital stay patient has or had the following: CHF DIAGNOSIS No Discharge Core Measures Meds if any: Prescribed or Continued at Discharge Meds if any: NOT Prescribed or Continued at Discharge Cerebrovascular accident Inclusion Criteria At DC or during hospital stay patient has or had the following: CVA/TIA Diagnosis No Discharge Core Measures Meds if any: Prescribed or Continued at Discharge Meds if any: NOT Prescribed or Continued at Discharge Venous thromboembolism Inclusion Criteria VTE Diagnosis No VTE Type NONE VTE Confirmed by (Test) NONE Discharge Core Measures - Per Current guidelines, there needs to be overlap - treatment for the first 5 days of Warfarin therapy. - If discharged on Warfarin prior to 5 days of - overlap therapy, the patient will need to be - assessed for post discharge needs including - *Post discharge parental anticoagulation - *Warfarin and/or parental anticoagulation education - *Follow up date to check INR post discharge At least 5 days overlap therapy as Inpatient No Meds if any: Prescribed or Continued at Discharge Note: Overlap Therapy is Warfarin and Anticoagulant Meds if any: NOT Prescribed or Continued at Discharge
[2017-03-12 14:55] VITALS: BP 120/80
== END 2017-03-12 17:00 ==
LOC: ERH 10:40 → 2NB 19:32 → ERHI 19:32 → ENRESERV 20:11 → 2NB 21:01
PROVIDERS: Emergency Medicine; Internal Medicine Infectious Disease; ADMIT Internal Medicine
DX: R10.9 Unspecified abdominal pain (principal); K58.0 Irritable bowel syndrome with diarrhea; F41.9 Anxiety disorder, unspecified; I10 Essential (primary) hypertension; E66.01 Morbid (severe) obesity due to excess calories; K44.9 Diaphragmatic hernia without obstruction or gangrene; F32.9 Major depressive disorder, single episode, unspecified
CPT/HCPCS: 6040; 74177; 80307; 81001; 82436; 93005; 93010; 96361; 96374; 96375; 96376; G0378; J1644; J1885; J2405; J2550

== ENCOUNTER 2017-03-15 09:43 | Emergency (ER) | payer OTHER ==
[~2017-03-15] VITALS: Ht 157.5 cm; Wt 99.8 kg
[~2017-03-15 09:43] MED LIST changes: +LEXAPRO20 M1 PO; +LOSARTAN POTASS25 M1 PO; +REGLAN10 M1 PO
--- NOTE | 2017-03-15 10:24 | ED GI/GU/ABDOMINAL COMPLAINT ---
History of Present Illness General Chief Complaint: Abdominal Pain/Flank Pain Stated Complaint: ABD PAIN/HERNIA Source: patient, old records, Epic Exam Limitations: no limitations Vital Signs & Intake/Output Vital Signs & Intake/Output Vital Signs Date Time Temp Pulse Resp B/P B/P Pulse O2 O2 Flow FiO2 Mean Ox Delivery Rate 03/15 1159 96.5 87 18 148/83 98 Room Air 03/15 1034 Room Air Room Air 03/15 0946 96.0 89 18 139/88 100 Room Air Allergies Coded Allergies: NO KNOWN ALLERGIES (09/20/13) Reconcile Medications Alprazolam (Xanax) 0.5 MG TABLET 1 TAB PO BID PRN ANXIETY Escitalopram Oxalate (Lexapro) 20 MG TABLET 1 TAB PO DAILY MENTAL HEALTH ( Reported) Losartan Potassium 25 MG TABLET 1 TAB PO DAILY HTN (Reported) Medroxyprogesterone Acetate 150 MG/1 ML SYRINGE 1 ML IM Q3M CONTROL ( Reported) Metoclopramide HCl (Reglan) 10 MG TABLET 1 TAB PO 4 TIMES/DAY PRN nausea 30 minutes before meals and bedtime Triage Note: PT TO ED FOR GENERALIZED ABD PAIN, STATING "ONLY DILAUDID WORKS FOR ME". SAW PCP YESTERDAY AND WAS GIVEN SCRIPT OF TRAMADOL "BUT THAT DOESN'T WORK" Triage Nurses Notes Reviewed? yes LMP (ages 10-50): unknown ? n Is pt currently ? No Onset: Morning Duration: hour(s):, constant, continues in ED Timing: recent history Quality/Severity: aching, sharpness, severe Location: epigastric Radiation: no radiation Activities at Onset: none Prior Abdominal Problems: similar symptoms Past Sexual History: Unobtainable at this time Modifying Factors: Worsens With: eating, palpation. Associated Symptoms: abdominal pain, diaphoresis, loss of appetite, nausea/ vomiting HPI: Several hours prior to admission she developed recurrent epigastric pain sharp severe nonradiating associated with nausea and anorexia diaphoresis. She denies fever chills diarrhea chest pain cough shortness of breath headache dysuria rash bleeding. Past History Travel History Traveled to [place] past 21 day No Medical History Any Pertinent Medical History? 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 No Review of Systems Review of Systems Constitutional: Reports: no symptoms. EENTM: Reports: no symptoms. Respiratory: Reports: no symptoms. Cardiovascular: Reports: no symptoms. GI: Reports: see HPI, abdominal pain, nausea. Genitourinary: Reports: no symptoms. Musculoskeletal: Reports: no symptoms. Skin: Reports: no symptoms. Neurological/Psychological: Reports: no symptoms. Hematologic/Endocrine: Reports: no symptoms. Immunologic/Allergic: Reports: no symptoms. All Other Systems: Reviewed and Negative Physical Exam Physical Exam General Appearance: well developed/nourished, alert, awake, anxious, severe distress, obese Head: atraumatic, normal appearance Eyes: Bilateral: normal appearance, PERRL, EOMI, normal inspection. Ears, Nose, Throat, Mouth: hearing grossly normal, moist mucous membrane Neck: normal inspection, supple, full range of motion, normal alignment, no midline tenderness Respiratory: normal breath sounds, chest non-tender, no respiratory distress, quiet respiration, lungs clear Cardiovascular: regular rate/rhythm, normal peripheral pulses, norml femoral pulses equa Peripheral Pulses: 4+ carotid (R), 4+ carotid (L) Gastrointestinal: normal bowel sounds, soft, non-tender, no organomegaly Back: normal inspection, normal range of motion Extremities: normal range of motion, no ligament instability Neurologic/Psych: no motor/sensory deficits, awake, alert, oriented x 3, normal gait, 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 No Severe Sepsis Present: No Septic Shock Present: No Progress Differential Diagnosis: biliary colic, gastritis Plan of Care: Current Medications Sig/Shravan Start time Last Medication Dose Stop Time Status Admin Sodium Chloride 1,000 ML ONCE ONE 03/15 1015 AC (Normal Saline 0.9%) 03/15 1114 Initial ED EKG: none Departure Departure Time of Disposition: 1310 Disposition: HOME OR SELF CARE Condition: Stable Clinical Impression Primary Impression: Hiatal hernia with GERD and esophagitis Referrals: GELY TURNER APRN (PCP/Family) Departure Forms: Customer Survey General Discharge Information Prescriptions: Current Visit Scripts Hyoscyamine Sulfate (Levsin-Sl) 1-2 TAB SL Q4P PRN abdominal pain #60 TAB Phenobarb/Hyoscy/Atropine/Scop ( Elixir) 5-10 ML PO Q6P PRN abdominal pain #120 ML Sucralfate (Carafate) 10 ML PO 4 TIMES/DAY #240 ML 1 hour before food and bedtime
[2017-03-15 11:59] VITALS: BP 148/83
[2017-03-15] MEDS ORDERED: DONNATAL E16.2 MG/5 PO (13:12)
[2017-03-15] MEDS ORDERED: LEVSIN-SL0.125 MG SL (13:12)
[2017-03-15] MEDS ORDERED: CARAFATE1 GM/10 M1 PO (13:12)
== END 2017-03-15 14:04 ==
LOC: ERH 09:43
DX: K44.9 Diaphragmatic hernia without obstruction or gangrene (principal); K21.9 Gastro-esophageal reflux disease without esophagitis; K20.9 Esophagitis, unspecified
CPT/HCPCS: 96374; 96375; 96376; J0131; J2550; J2765

== ENCOUNTER 2018-01-30 07:35 | Inpatient (IN) | payer OTHER ==
[~2018-01-30] VITALS: Ht 157.5 cm; Wt 96.6 kg
[~2018-01-30 07:35] MED LIST changes: +BENTYL10 M1 PO; +CARAFATE1 GM/10 M1 PO; +DEPO-PROVE150 MG/1 M IM; +DONNATAL E16.2 MG/5 PO; +FAMOTIDINE20 M1 PO; +KLONOPIN0.5 M1 PO; +LEVSIN-SL0.125 MG SL; +LEVSIN0.125 M1 PO; +OMEPRAZOLE20 M3 PO; +ONDANSETRON ODT4 M1 SL; +PROMETHAZINE HC25 M3 PO; +SERTRALINE HCL50 MG PO; +ZOFRAN ODT4 M1 SL
--- NOTE | 2018-01-30 07:40 | ED GI/GU/ABDOMINAL COMPLAINT ---
History of Present Illness General Chief Complaint: Nausea, Vomiting, Diarrhea Stated Complaint: NVD Source: patient, old records Exam Limitations: no limitations Vital Signs & Intake/Output Vital Signs & Intake/Output Vital Signs Date Time Temp Pulse Resp B/P B/P Pulse O2 O2 Flow FiO2 Mean Ox Delivery Rate 01/30 1212 98.4 72 18 118/65 100 Room Air 01/30 1014 72 16 135/88 99 Room Air 01/30 0738 97.4 80 20 138/97 998 Room Air Allergies Coded Allergies: No Known Allergies (06/23/17) Reconcile Medications Clonazepam (Klonopin) 0.5 MG TABLET 1 TAB PO BIDP PRN ANXIETY (Reported) Dicyclomine Hydrochloride (Bentyl) 10 MG CAPSULE 1 CAP PO TID PAIN Hyoscyamine (Levsin) 0.125 MG TABLET 1 TAB PO Q4 PRN ABDOMINAL PAIN Hyoscyamine (Levsin) 0.125 MG TABLET 1 TAB PO Q4 PRN ABDOMINAL PAIN Losartan Potassium 25 MG TABLET 1 TAB PO DAILY HTN (Reported) Medroxyprogesterone Acetate 150 MG/1 ML SYRINGE 1 ML IM Q3M CONTROL ( Reported) Metoclopramide HCl (Reglan) 10 MG TABLET 1 TAB PO 4 TIMES/DAY PRN NAUSEA 30 minutes before meals and bedtime Metoclopramide HCl (Reglan) 10 MG TABLET 1 TAB PO 4 TIMES/DAY PRN NAUSEA 30 minutes before meals and bedtime Ondansetron (Ondansetron Odt) 4 MG TAB.RAPDIS 1 TAB SL TID PRN NAUSEA/VOMITING (Reported) Ondansetron (Zofran Odt) 4 MG TAB.RAPDIS 1 TAB SL TID nausea Promethazine HCl 25 MG TABLET 1 TAB PO Q6P PRN NAUSEA Sertraline HCl 50 MG TABLET 1 TAB PO DAILY ANXIETY (Reported) Triage Note: PT TO ED C/O N/V/D AND ABD PAIN SINCE 0100 THIS AM. Triage Nurses Notes Reviewed? yes ? N Is pt currently ? No HPI: Patient was awoken at 1:00 in the morning with epigastric pain as well as nausea vomiting and diarrhea. She describes the pain as an intense sick feeling. The pain is 10 out of 10. There is no radiation. There are no aggravating or mitigating factors. Patient took Bentyl without any relief. There are no fevers or chills. Patient is unsure if this is similar to the multiple other time she was in the emergency department for abdominal pain nausea vomiting and diarrhea. Patient does have a history of irritable bowel syndrome but does not know if that is what is going on. There is no radiation of the pain. The pain is constant. Past History Travel History Traveled to [place] past 21 day No Medical History Any Pertinent Medical History? 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 No Review of Systems Review of Systems Constitutional: Reports: no symptoms. EENTM: Reports: no symptoms. Respiratory: Reports: no symptoms. Cardiovascular: Reports: no symptoms. GI: Reports: see HPI, abdominal pain, diarrhea, nausea, vomiting. Genitourinary: Reports: no symptoms. Musculoskeletal: Reports: no symptoms. Skin: Reports: no symptoms. Neurological/Psychological: Reports: no symptoms. Hematologic/Endocrine: Reports: no symptoms. Immunologic/Allergic: Reports: no symptoms. All Other Systems: Reviewed and Negative Physical Exam Physical Exam General Appearance: well developed/nourished, alert, awake, anxious, moderate distress Head: atraumatic, normal appearance Eyes: Bilateral: PERRL, EOMI, other (ANICTERIC). Ears, Nose, Throat, Mouth: hearing grossly normal, DRY MUCUS MEMBRANES Neck: normal inspection, supple, full range of motion Respiratory: normal breath sounds, chest non-tender, no respiratory distress, lungs clear Cardiovascular: regular rate/rhythm, normal peripheral pulses Gastrointestinal: normal bowel sounds, soft, non-tender, no organomegaly, NO TENDERNESS, NO GAURDING OR REBOUND Back: normal inspection, normal range of motion, NOCVA TENDERNESS Extremities: normal range of motion Neurologic/Psych: no motor/sensory deficits, awake, alert, oriented x 3, normal gait, normal mood/affect Skin: intact, normal color, warm/dry Core Measures ACS in differential dx? No Sepsis Present: No Sepsis Focused Exam Completed? No Progress Differential Diagnosis: appendicitis, biliary colic, bowel obstruction, colon cancer, cholecystitis, diverticulitis, ectopic , gastritis, hepatitis, ischemic bowel, inflamm bowel dis, intrauterine , kidney stone, pancreatitis, peptic ulcer, PUD/GERD, SBO, threatened AB, UTI/pyelo Plan of Care: Orders Procedure Date/time Status Clear Liquid Diet 01/30 D Active ED Holding Orders 01/30 1332 Active Admit to inpatient 01/30 1332 Active Vital Signs 01/30 1332 Active Code Status 01/30 1332 Active URINALYSIS 01/30 0743 Complete LIPASE 01/30 0743 Complete HUMAN BETA HCG SCREEN 01/30 0743 Complete COMPREHENSIVE METABOLIC PANEL 01/30 0743 Complete CBC WITHOUT DIFFERENTIAL 01/30 743 Complete AMYLASE 01/30 07 Complete Laboratory Tests 01/30/18 1140: Urine Color YEL, Urine Clarity CLEAR, Urine pH 8.0, Ur Specific [place] 1.020, Urine Protein NEG, Urine Ketones 15 H, Urine Nitrite NEG, Urine Bilirubin NEG, Urine Urobilinogen 0.2, Ur Leukocyte Esterase NEG, Ur Microscopic SEDIMENT EXAMINED, Urine RBC 1-3, Urine WBC RARE, Ur Epithelial Cells FEW, Urine Bacteria RARE H, Urine Mucus RARE, Urine Hemoglobin NEG, Urine Glucose NEG 01/30/18 0800: Anion Gap 13, Estimated GFR > 60, BUN/Creatinine Ratio 30.0 H, Glucose 142 H, Calcium 9.7, Total Bilirubin 0.9, AST 16, ALT 20, Alkaline Phosphatase 64, Total Protein 7.2, Albumin 4.6, Globulin 2.6, Albumin/Globulin Ratio 1.8, Amylase 83, Lipase 112, Total Beta HCG NEGATIVE, CBC w Diff NO MAN DIFF REQ, RBC 4.84, MCV 91.1, MCH 31.4 H, MCHC 34.5, RDW 13.6, MPV 7.0 L, Gran % 86.0 H, Lymphocytes % 8.2 L, Monocytes % 5.1, Eosinophils % 0.3, Basophils % 0.4, Absolute Granulocytes 6.9 H, Absolute Lymphocytes 0.7 L, Absolute Monocytes 0.4, Absolute Eosinophils 0, Absolute Basophils 0 Diagnostic Imaging: Viewed by Me: CT Scan. Discussed w/RAD: CT Scan. Radiology Impression: PATIENT: MISAEL VILLA PRESENT AGE: 37 PATIENT ACCOUNT NO: [id number] : 78 LOCATION: [facility] ORDERING PHYSICIAN: Edmund Lucio MD SERVICE DATE: 01/30/18 EXAM TYPE: CAT - CT ABD & PELVIS W IV CONTRAST EXAMINATION: CT ABDOMEN AND PELVIS WITH CONTRAST CLINICAL INFORMATION: Diffuse abdominal pain COMPARISON: Multiple prior CT abdomen and pelvis most recent prior dated 08/15/2017 TECHNIQUE: Multidetector volumetric imaging was performed of the abdomen and pelvis following IV administration of 95 mL of Optiray 320 intravenous contrast. Sagittal and coronal reformatted images were obtained on the technologist's workstation. DLP: 537.70 mGy-cm FINDINGS: LUNG BASES: The visualized lung bases are unremarkable. Small epicardiac lymph nodes noted again. Trace pericardial effusion noted again. LIVER, GALLBLADDER, AND BILIARY TREE: The liver is normal in size, shape, and attenuation. No focal hepatic lesion or biliary ductal dilatation is present. The gallbladder is unremarkable with no evidence of radiopaque gallstones, gallbladder wall thickening, or obvious pericholecystic inflammatory changes. PANCREAS: Unremarkable. SPLEEN: Unremarkable. ADRENAL GLANDS: Unremarkable. KIDNEYS AND URETERS: Stable tiny cortical low-attenuation posterior aspect mid left kidney too small to be accurately characterized. Symmetric bilateral renal enhancement and function. BLADDER: Punctate hyperdensity noted again along the right posterior wall of the urinary bladder likely representing adjacent tiny phlebolith (series 2 image 72). GASTROINTESTINAL TRACT: Small hiatal hernia noted again. No acute bowel pathology. Prominence of the fatty stratification/fat halo sign noted again in the ascending colon and transverse colon. These findings can be seen as a normal variation but can also be associated with inflammatory bowel disease. No gross evidence of abnormal wall thickness identified. Nondistended bowel loops are noted. ABDOMINAL WALL: No significant hernia is appreciated. LYMPH NODES: Normal. VASCULAR: Unremarkable. PELVIC VISCERA: Physiologic changes bilateral ovaries. No evidence of free fluid or abnormal fluid collection. OSSEOUS STRUCTURES: No acute osseous abnormality. No bony destructive changes. IMPRESSION: 1. Nonspecific fat halo sign involving the ascending and transverse colon also seen on the previous examinations. Although it has been described with inflammatory bowel disease, this finding can also be seen with obesity. Clinical correlation recommended. No acute bowel pathology. 2. Stable trace pericardial effusion. 3. Stable small hiatal hernia. DICTATED BY: Zaida Malik MD DATE/TIME DICTATED:01/30/181046 IT PROGRAM AUDITOR:SONDRA DATE/TIME TRANSCRIBED:01/30/181046 CONFIDENTIAL, DO NOT COPY WITHOUT APPROPRIATE AUTHORIZATION. <Electronically signed in Other Vendor System> SIGNED BY: Zaida Malik MD 01/30/18 1104 Initial ED EKG: none Comments: NO RELIEF FROM IV TORADOL. PT TOLDNURSING THAT IT WOULDN'T WORK EVENPRIOR TO RECEIVING TORADOL. ON REVIEW OF PRIOR ER RECORDS, PT HS RECEIVED MORPHINE AND DILAUDID IN THE PAST. PT ADVISED THATSTUDIES SHOW THAT NARCOTICS CAN MAKE IBS WORSE AND SHE WOULD NOT BE RECEIVING NARCOTICS HERE UNLESS WE FIND SOEMTHING ELSE THAT WOULD REQUIRE NARCOTIC PAIN CONTROL. Patient has been seen in the emergency department by Dr. Pedraza. THE patient is discharged she will see her in follow-up and he will probably arrange for a gastric emptying study as well as a possible colonoscopy. Patient still does not feel well. She continues to dry heave and have abdominal pain. At this point patient will be admitted for intractable nausea. Departure Departure Disposition: STILL A PATIENT Condition: Stable Clinical Impression Primary Impression: Vomiting Qualifiers: Vomiting type: unspecified Vomiting Intractability: non-intractable Nausea presence: with nausea Qualified Code: R11.2 - Nausea with vomiting, unspecified Secondary Impressions: Abdominal pain, unspecified site Qualifiers: Abdominal location: generalized Qualified Code: R10.84 - Generalized abdominal pain Referrals: Harsh Pedraza MD (PCP/Family) Additional Instructions: FOLLOW UP WITH DR. PEDRAZA RETURN IF SYMPTOMS WORSENOR FOR ANY CONCERNS Departure Forms: Customer Survey General Discharge Information Prescriptions: Current Visit Scripts Metoclopramide HCl (Reglan) 1 TAB PO 4 TIMES/DAY PRN NAUSEA #20 TAB 30 minutes before meals and bedtime Hyoscyamine (Levsin) 1 TAB PO Q4 PRN ABDOMINAL PAIN #20 TAB Admission Note Spoke With: Yared VARGAS,Dilan Documentation of Exam: Documentation of any treatments & extenuating circumstances including Concerns Regarding Discharge (functional status, medication knowledge or non-compliance, living conditions, etc.) that warrant an admission rather than observation: [IV fluids, IV antiemetics, pain control, GI consultation]
[2018-01-30 08:08] LABS: ABSOLUTE BASOPHIL COUNT 0 /CUMM (0.0-0.2); ABSOLUTE EOSINOPHIL COUNT 0 /CUMM (0.0-0.7); ABSOLUTE GRANULOCYTE CT 6.9 /CUMM (1.4-6.5); ABSOLUTE LYMPH COUNT 0.7 /CUMM (1.2-3.4); ABSOLUTE MONOCYTE COUNT 0.4 /CUMM (0.10-0.60); BASOPHIL % 0.4 % (0.0-2.0); EOSINOPHIL % 0.3 % (0-5); HEMATOCRIT 44.1 % (37-47); MEAN CORPUSCULAR HGB 31.4 PG (27.0-31.0); MEAN CORPUSCULAR HGB CONC 34.5 G/DL (33.0-37.0); MEAN CORPUSCULAR VOLUME 91.1 FL (81.0-99.0); PLATELET COUNT 298 /CUMM (130-400); RBC DISTRIBUTION WIDTH 13.6 % (11.5-14.5); RED BLOOD CELL CT 4.84 /CUMM (4.20-5.40)
--- NOTE | 2018-01-30 11:04 | CT SCAN REPORT ---
EXAMINATION: CT ABDOMEN AND PELVIS WITH CONTRAST CLINICAL INFORMATION: Diffuse abdominal pain COMPARISON: Multiple prior CT abdomen and pelvis most recent prior dated 08/15/2017 TECHNIQUE: Multidetector volumetric imaging was performed of the abdomen and pelvis following IV administration of 95 mL of Optiray 320 intravenous contrast. Sagittal and coronal reformatted images were obtained on the technologist's workstation. DLP: 537.70 mGy-cm FINDINGS: LUNG BASES: The visualized lung bases are unremarkable. Small epicardiac lymph nodes noted again. Trace pericardial effusion noted again. LIVER, GALLBLADDER, AND BILIARY TREE: The liver is normal in size, shape, and attenuation. No focal hepatic lesion or biliary ductal dilatation is present. The gallbladder is unremarkable with no evidence of radiopaque gallstones, gallbladder wall thickening, or obvious pericholecystic inflammatory changes. PANCREAS: Unremarkable. SPLEEN: Unremarkable. ADRENAL GLANDS: Unremarkable. KIDNEYS AND URETERS: Stable tiny cortical low-attenuation posterior aspect mid left kidney too small to be accurately characterized. Symmetric bilateral renal enhancement and function. BLADDER: Punctate hyperdensity noted again along the right posterior wall of the urinary bladder likely representing adjacent tiny phlebolith (series 2 image 72). GASTROINTESTINAL TRACT: Small hiatal hernia noted again. No acute bowel pathology. Prominence of the fatty stratification/fat halo sign noted again in the ascending colon and transverse colon. These findings can be seen as a normal variation but can also be associated with inflammatory bowel disease. No gross evidence of abnormal wall thickness identified. Nondistended bowel loops are noted. ABDOMINAL WALL: No significant hernia is appreciated. LYMPH NODES: Normal. VASCULAR: Unremarkable. PELVIC VISCERA: Physiologic changes bilateral ovaries. No evidence of free fluid or abnormal fluid collection. OSSEOUS STRUCTURES: No acute osseous abnormality. No bony destructive changes. IMPRESSION: 1. Nonspecific fat halo sign involving the ascending and transverse colon also seen on the previous examinations. Although it has been described with inflammatory bowel disease, this finding can also be seen with obesity. Clinical correlation recommended. No acute bowel pathology. 2. Stable trace pericardial effusion. 3. Stable small hiatal hernia.
[2018-01-30] MEDS ORDERED: LEVSIN0.125 M1 PO (12:47)
[2018-01-30] MEDS ORDERED: REGLAN10 M1 PO (12:47)
--- NOTE | 2018-01-30 13:50 | History & Physical ---
Jessica VARGAS,Jaspal 01/30/18 4803: General Information and HPI History of Present Illness: Ms. Sow is a 37-year-old female with past medical history of hiatal hernia, irritable bowel syndrome followed by Dr. Pedraza, anxiety presents with nausea and vomiting. The patient notes that on Friday night she had taken out. Afterwards, she began experiencing nonbloody vomiting and diarrhea about 5 times a day. She went to work yesterday but today the symptoms progressed so she came in for further evaluation. She also describes abdominal pain that is received slightly by vomiting. She has had sweats and chills. She has tried taking Bentyl with no relief. She denies any recent travel, sick contacts, chest pain, shortness breath, or dysuria. She does not smoke, use alcohol, or use recreational drugs. 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 Ambulation: independent IADLs Independent: shopping, housework, finances, food prep, telephone, transportation , medication admin. Review of Systems Review of Systems Constitutional: Reports: see HPI. EENTM: Reports: no symptoms. Cardiovascular: Reports: no symptoms. Respiratory: Reports: no symptoms. GI: Reports: see HPI. Genitourinary: Reports: no symptoms. Musculoskeletal: Reports: no symptoms. Skin: Reports: no symptoms. Neurological/Psychological: Reports: no symptoms. Hematologic/Endocrine: Reports: no symptoms. Immunologic/Allergic: Reports: no symptoms. All Other Systems: Reviewed and Negative Exam & Diagnostic Data Last 24 Hrs of Vital Signs/I&O Vital Signs Date Time Temp Pulse Resp B/P B/P Pulse O2 O2 Flow FiO2 Mean Ox Delivery Rate 01/30 1212 98.4 72 18 118/65 100 Room Air 01/30 1014 72 16 135/88 99 Room Air 01/30 0738 97.4 80 20 138/97 998 Room Air Intake & Output 01/30 1600 01/30 0800 01/30 0000 Intake Total 1100 Output Total Balance 1100 Intake, IV 1100 Patient 90.718 kg Weight Weight Reported by Patient Measurement Method Physical Exam General Appearance Alert, Oriented X3, Cooperative, Mild Distress Cardiovascular Regular Rate, Normal S1, Normal S2 Lungs Clear to Auscultation, Normal Air Movement Abdomen mild tenderness in epigastrium, obese Extremities No Edema, Normal Pulses, No Tenderness/Swelling Last 24 Hrs of Labs/Humberto: Laboratory Tests 01/30/18 1140: Urine Color YEL, Urine Clarity CLEAR, Urine pH 8.0, Ur Specific [place] 1.020, Urine Protein NEG, Urine Ketones 15 H, Urine Nitrite NEG, Urine Bilirubin NEG, Urine Urobilinogen 0.2, Ur Leukocyte Esterase NEG, Ur Microscopic SEDIMENT EXAMINED, Urine RBC 1-3, Urine WBC RARE, Ur Epithelial Cells FEW, Urine Bacteria RARE H, Urine Mucus RARE, Urine Hemoglobin NEG, Urine Glucose NEG 01/30/18 0800: Anion Gap 13, Estimated GFR > 60, BUN/Creatinine Ratio 30.0 H, Glucose 142 H, Calcium 9.7, Total Bilirubin 0.9, AST 16, ALT 20, Alkaline Phosphatase 64, Total Protein 7.2, Albumin 4.6, Globulin 2.6, Albumin/Globulin Ratio 1.8, Amylase 83, Lipase 112, Total Beta HCG NEGATIVE, CBC w Diff NO MAN DIFF REQ, RBC 4.84, MCV 91.1, MCH 31.4 H, MCHC 34.5, RDW 13.6, MPV 7.0 L, Gran % 86.0 H, Lymphocytes % 8.2 L, Monocytes % 5.1, Eosinophils % 0.3, Basophils % 0.4, Absolute Granulocytes 6.9 H, Absolute Lymphocytes 0.7 L, Absolute Monocytes 0.4, Absolute Eosinophils 0, Absolute Basophils 0 Assessment/Plan Assessment: Ms. Sow is a 37-year-old female with past medical history of hiatal hernia, irritable bowel syndrome followed by Dr. Pedraza, and anxiety who presents with nausea and vomiting. On presentation, vital signs were T 97.4, HR 80, RR 20, BP 1:30/77, saturating 90% on room air. Laboratories are significant for normal CBC, normal BP, normal LFTs, normal UA. CT abdomen and pelvis showed fat halo sign which is consistent with obesity. She will be admitted to general medicine and treated for following problems: 1. Likely gastroenteritis #Likely gastroenteritis: Patient presents with nausea and vomiting after eating take-out. She does have a history of IBS. Afebrile with normal labs and imaging. Likely gastroenteritis given history versus IBS. Additionally, U tox positive for cannabis, potentially cyclical vomiting syndrome. -Anti-emetics -EKG for QTC -IV fluid hydration -Clear liquid diet, advance as tolerated to FODMAP diet -Stool culture -GI consult -Cannabis use counseling -IV pantoprazole twice a day #Chronic medical problems: -Continue other medications DVT prophylaxis with enoxaparin Clear liquid diet Full code As Ranked By This Provider Problem List: 1. Gastroenteritis Core Measures/Misc (06/29) Acute Coronary Syndrome ACS Diagnosis: No Congestive Heart Failure Congestive Heart Failure Diagnosis No Cerebrovascular Accident CVA/TIA Diagnosis: No VTE (View Protocol) VTE Risk Factors Oral Contraception No Mechanical VTE Prophylaxis d/t N/A MechProphylax Ordered No VTE Pharm Prophylaxis d/t NA PharmProphylax ordered Sepsis (View protocol) Sepsis Present: No Kisha Carrasquillo MD 01/30/18 1501: Attending MD Review Statement Attending Statement Attending MD Statement: examined this patient, discuss w/resident/PA/PILE DRIVER OPERATOR, agreed w/resident/PA/PILE DRIVER OPERATOR, reviewed EMR data (avail), discussed with nursing, discussed with case mgmt, reviewed images, amended to note Attending Assessment/Plan: 37 y/o F with pmh sig for hiatal hernia, irritable bowel syndrome, hemorrhoids p /w abd pain, intractable n/v. Patient claims that she ate out on Friday. Since then she has been having nausea vomiting. She started developing this excruciating abdominal pain which is mainly located in the epigastric region since this morning. She does have history of same before and she has seen Dr. Pedraza. She has been diagnosed with IBS. She does take Levsin as needed. She describes the pain as sharp crampy, located in the epigastric region. No radiation. 10 out of 10 in intensity. She claims that she had vomited 15 times since this morning and 6 times she has diarrhea. Diarrhea was described as loose and watery. Denies any hematemesis, coffee ground emesis or melanotic stool. Denies any bright blood per rectum. Denies fevers but c/o chills. She is complaining of excruciating pain and says that nothing else works desides morphine. She has received morphine before as she reports. Vital Signs Date Time Temp Pulse Resp B/P B/P Pulse O2 O2 Flow FiO2 Mean Ox Delivery Rate 01/30 1434 99.0 86 20 140/83 100 Room Air 01/30 1212 98.4 72 18 118/65 100 Room Air 01/30 1014 72 16 135/88 99 Room Air 01/30 0738 97.4 80 20 138/97 998 Room Air on exam : aox3, mild distress 2/2 to pain. cv; s1, s2, rrr resp; clear abd; soft, tender in epigastrium, bs+ ext: no edema Laboratory Tests 01/30 01/30 1140 0800 Chemistry Sodium (137 - 145 mmol/L) 144 Potassium (3.5 - 5.1 mmol/L) 3.7 Chloride (98 - 107 mmol/L) 107 Carbon Dioxide (22 - 30 mmol/L) 23 Anion Gap (5 - 16) 13 BUN (7 - 17 mg/dL) 18 H Creatinine (0.5 - 1.0 mg/dL) 0.6 Estimated GFR (>60 ml/min) > 60 BUN/Creatinine Ratio (7 - 25 %) 30.0 H Glucose (65 - 99 mg/dL) 142 H Lactic Acid (0.7 - 2.1 mmol/L) 1.2 Calcium (8.4 - 10.2 mg/dL) 9.7 Total Bilirubin (0.2 - 1.3 mg/dL) 0.9 AST (14 - 36 U/L) 16 ALT (9 - 52 U/L) 20 Alkaline Phosphatase (<127 U/L) 64 Total Protein (6.3 - 8.2 g/dL) 7.2 Albumin (3.5 - 5.0 g/dL) 4.6 Globulin (1.9 - 4.2 gm/dL) 2.6 Albumin/Globulin Ratio (1.1 - 2.2 %) 1.8 Amylase (30 - 110 U/L) 83 Lipase (23 - 300 U/L) 112 Total Beta HCG (NEGATIVE) NEGATIVE Hematology CBC w Diff NO MAN DIFF REQ WBC (4.8 - 10.8 /CUMM) 8.0 RBC (4.20 - 5.40 /CUMM) 4.84 Hgb (12.0 - 16.0 G/DL) 15.2 Hct (37 - 47 %) 44.1 MCV (81.0 - 99.0 FL) 91.1 MCH (27.0 - 31.0 PG) 31.4 H MCHC (33.0 - 37.0 G/DL) 34.5 RDW (11.5 - 14.5 %) 13.6 Plt Count (130 - 400 /CUMM) 298 MPV (7.4 - 10.4 FL) 7.0 L Gran % (42.2 - 75.2 %) 86.0 H Lymphocytes % (20.5 - 51.1 %) 8.2 L Monocytes % (1.7 - 9.3 %) 5.1 Eosinophils % (0 - 5 %) 0.3 Basophils % (0.0 - 2.0 %) 0.4 Absolute Granulocytes (1.4 - 6.5 /CUMM) 6.9 H Absolute Lymphocytes (1.2 - 3.4 /CUMM) 0.7 L Absolute Monocytes (0.10 - 0.60 /CUMM) 0.4 Absolute Eosinophils (0.0 - 0.7 /CUMM) 0 Absolute Basophils (0.0 - 0.2 /CUMM) 0 Toxicology Urine Opiates Screen (>2000 NG/ML) Pending Methadone Screen (>300 NG/ML) Pending Barbiturate Screen (>200 NG/ML) Pending Ur Phencyclidine Scrn (>25 NG/ML) Pending Amphetamines Screen (>1000 NG/ML) Pending U Benzodiazepines Scrn (>200 NG/ML) Pending Urine Cocaine Screen (>300 NG/ML) Pending Urine Cannabis Screen (>50 NG/ML) Pending Urines Urine Color (YEL,AMB,STR) YEL Urine Clarity (CLEAR) CLEAR Urine pH (5.0 - 8.0) 8.0 Ur Specific [place] (1.001 - 1.035) 1.020 Urine Protein (NEG,<30 MG/DL) NEG Urine Ketones (NEG) 15 H Urine Nitrite (NEG) NEG Urine Bilirubin (NEG) NEG Urine Urobilinogen (0.1 - 1.0 EU/dl) 0.2 Ur Leukocyte Esterase (NEG) NEG Ur Microscopic SEDIMENT EXAMINED Urine RBC (0 - 5 /HPF) 1-3 Urine WBC (0 - 2 /HPF) RARE Ur Epithelial Cells (NONE,FEW) FEW Urine Bacteria (NEG/NONE) RARE H Urine Mucus (FEW,NONE) RARE Urine Hemoglobin (NEG) NEG Urine Glucose (N MG/DL) NEG A/P: 37 y/o F with pmh sig for hiatal hernia, irritable bowel syndrome, hemorrhoids admitted with intractable nausea, vomiting diarrhea as well as epigastric pain. Patient admitted to medicine floor. She will be kept nothing by mouth and will be hydrated with IV fluids. She will be treated with symptomatic management with antiemetics after we make sure EKG does not have prolonged QTC as well as analgesics. Patient requesting morphine in the emergency room. She was given a one-time dose of morphine. We' ll try to control her pain with antispasmodics and non narcotic regimen. Please check stool studies for stool for C. difficile as well as culture. GI consult. CT scan does not show any abnormality. IV PPI BID. Her labs do not show any significant upper medically. Her urine tox screen is pending. We'll continue the rest of her home medications. DVT prophylaxis: Lovenox. Full code. Wes VARGAS,Malka 01/30/18 6094: General Information and HPI Allergies/Medications Home Med list Clonazepam (Klonopin) 0.5 MG TABLET 1 TAB PO BIDP PRN ANXIETY (Reported) Dicyclomine Hydrochloride (Bentyl) 10 MG CAPSULE 1 CAP PO TID PAIN Hyoscyamine (Levsin) 0.125 MG TABLET 1 TAB PO Q4 PRN ABDOMINAL PAIN Hyoscyamine (Levsin) 0.125 MG TABLET 1 TAB PO Q4 PRN ABDOMINAL PAIN Losartan Potassium 25 MG TABLET 1 TAB PO DAILY HTN (Reported) Medroxyprogesterone Acetate 150 MG/1 ML SYRINGE 1 ML IM Q3M CONTROL ( Reported) Metoclopramide HCl (Reglan) 10 MG TABLET 1 TAB PO 4 TIMES/DAY PRN NAUSEA 30 minutes before meals and bedtime Ondansetron (Ondansetron Odt) 4 MG TAB.RAPDIS 1 TAB SL TID PRN NAUSEA/VOMITING (Reported) Ondansetron (Zofran Odt) 4 MG TAB.RAPDIS 1 TAB SL TID nausea Promethazine HCl 25 MG TABLET 1 TAB PO Q6P PRN NAUSEA Resident Review Statement Resident Statement: examined this patient, discussed with international tax manager, agreed with international tax manager, discussed with family, reviewed EMR data (avail), discussed with nursing , discussed with case mgmt, reviewed images, amended to note Other Findings: Patient is a 37 YO F with PMH significant for IBS, HTN presented to [place] with epigastric abdominal pain started this morning after eating foot outside. She had intaractable nausea, vomiting, diarrhea. She had similar episodes last june and october and reportedly received opiates at that time. She is very uncomfortable during my interview, unable to talk due to pain. She is currently on dicyclomin and omez daily with as needed antiemetics despite which she had diarrhea every day at baseline. Today she had intaractable pain which prompted her to come to ER. family history of IBS Takes marijuana Physical exam Epigastric tenderness without any rebound tenderness. Normal heart sounds, lungs clear to ausculatation, Normal bowel sounds. U.tox positive for cannabis Plan Admit to general medicine floor Intaractable abdominal pain Patient had a history of IBS and currently on dicyclomine and omez. She is on as needed antiemetics. She had acute worsening of abdominal pain without any imagning findings of acute exacerbation. * IV hydration * IV antiemetics and pain medications * GI consult * Hyoscyamine for spasms * IV PPI * Stool studies to rule out infection HTN Continue losartan 25mg daily She reports she was not taking sertraline lately. DVT prophylaxis SC lovenox Code status Full code
[2018-01-30 16:01] VITALS: BP 142/86
--- NOTE | 2018-01-30 16:27 | Cons- Gastroenterology ---
General Information and HPI Consulting Request Date of Consult: 01/30/18 Requested By: Kisha Carrasquillo MD Reason for Consult: Abdominal pain, nausea, vomiting and diarrhea. Source of Information: patient, old records Exam Limitations: no limitations History of Present Illness: Ms. Sow is a 37 year old female with a previous medical history of IBS who presents to today with complaints of persistent nausea and vomiting and diarrhea all associated with diffuse abdominal pain. She saw me with similar symptoms as an outpatient at the end of October of this year and at that time a repeat endoscopic work up was referred as she had an endoscopy in June which showed erosive reflux esophagitis and as she had also noted having a colonoscopy within the past year. On that office visit she had a celiac panel ordered which was negative and she also had a fecal calprotectin ordered with a plan to repeat her colonoscopy if that was elevated, but she never submitted this. She was also given prescriptions for dicyclomine and protonix. Since that office visit she reportedly had been doing relatively well, but she notes that over the past week since eating take out she has had worsening symptoms with her not being able to tolearte any PO intake without vomiting. She has not had any hematemesis and she also denies dysphagia. She reports that she has been only taking taking the Protonix about twice a week and she has been using the dicyclomine as needed for pain with some, but not complete relief. She continues to complain of diarrhea having about 7-8 bowel movements a day without any rectal bleeding or melena. She has not been using Imodium. In the emergency room she was hemodynamically stable and afebrile. She had unremarkable blood work and an unremarkable CAT scan and was given Reglan, Zofran, and morphine with some improvement in her symptoms but as she continued to have some vomiting and pain she was admitted for pain management. Allergies/Medications Allergies: Coded Allergies: No Known Allergies (06/23/17) Home Med List: Clonazepam (Klonopin) 0.5 MG TABLET 1 TAB PO BIDP PRN ANXIETY (Reported) Dicyclomine Hydrochloride (Bentyl) 10 MG CAPSULE 1 CAP PO TID PAIN Hyoscyamine (Levsin) 0.125 MG TABLET 1 TAB PO Q4 PRN ABDOMINAL PAIN Hyoscyamine (Levsin) 0.125 MG TABLET 1 TAB PO Q4 PRN ABDOMINAL PAIN Losartan Potassium 25 MG TABLET 1 TAB PO DAILY HTN (Reported) Medroxyprogesterone Acetate 150 MG/1 ML SYRINGE 1 ML IM Q3M CONTROL ( Reported) Metoclopramide HCl (Reglan) 10 MG TABLET 1 TAB PO 4 TIMES/DAY PRN NAUSEA 30 minutes before meals and bedtime Ondansetron (Ondansetron Odt) 4 MG TAB.RAPDIS 1 TAB SL TID PRN NAUSEA/VOMITING (Reported) Ondansetron (Zofran Odt) 4 MG TAB.RAPDIS 1 TAB SL TID nausea Promethazine HCl 25 MG TABLET 1 TAB PO Q6P PRN NAUSEA Current Medications: Current Medications Sig/Shravan Start time Last Medication Dose Route Stop Time Status Admin Acetaminophen 0 .STK-MED ONE 01/30 0846 DC IV Acetaminophen 1,000 MG ONCE ONE 01/30 0830 DC 01/30 N/A 1 UNIT IV 01/30 0844 0851 Clonazepam 0.5 MG BID PRN 01/30 1545 AC PO 02/06 1544 Hyoscyamine 0.125 MG Q4 HRS NEEDED PRN 01/30 1545 AC PO Hyoscyamine 0 .STK-MED ONE 01/30 0850 DC .ROUTE Hyoscyamine 0 .STK-MED ONE 01/30 0847 DC .ROUTE Hyoscyamine 0 .STK-MED ONE 01/30 0847 DC .ROUTE Hyoscyamine 0.125 MG ONCE ONE 01/30 0830 DC 01/30 PO 01/30 0831 0851 Ketorolac 0 .STK-MED ONE 01/30 1431 DC Tromethamine .ROUTE Ketorolac 15 MG ONCE ONE 01/30 1415 DC 01/30 Tromethamine IV 01/30 1416 1436 Ketorolac 0 .STK-MED ONE 01/30 0804 DC Tromethamine .ROUTE Ketorolac 30 MG ONCE ONE 01/30 0745 DC 01/30 Tromethamine IV 01/30 0746 0822 Metoclopramide HCl 10 MG 4 TIMES/DAY PRN 01/30 1545 AC PO Metoclopramide HCl 0 .STK-MED ONE 01/30 1132 DC .ROUTE Metoclopramide HCl 10 MG ONCE ONE 01/30 1115 DC 01/30 IV 01/30 1116 1127 Morphine Sulfate 2 MG Q6P PRN 01/30 1615 AC IV Morphine Sulfate 0 .STK-MED ONE 01/30 1520 DC .ROUTE Morphine Sulfate 2 MG ONCE ONE 01/30 1515 DC 01/30 IV 01/30 1516 1521 Morphine Sulfate 2 MG ONCE ONE 01/30 1415 CAN IV 01/30 1416 Ondansetron HCl 0 .STK-MED ONE 01/30 0804 DC .ROUTE Ondansetron HCl 4 MG ONCE ONE 01/30 0745 DC 01/30 IV 01/30 0746 0822 Promethazine HCl 0 .STK-MED ONE 01/30 0918 DC .ROUTE Promethazine HCl 25 MG ONCE ONE 01/30 0900 DC 01/30 IV 01/30 0901 0918 Sodium Chloride 1,000 ML .[id number] 01/30 1430 AC 01/30 IV 1521 Sodium Chloride 1,000 ML BOLUS ONE 01/30 0745 DC 01/30 IV 01/30 0844 0822 Sodium Chloride 1,000 ML BOLUS ONE 01/30 0745 DC 01/30 IV 01/30 0844 1030 Past History Travel History Traveled to [place] past 21 day No Medical History Neurological: NONE EENT: NONE Cardiovascular: NONE Respiratory: NONE Gastrointestinal: hiatal hernia, irritable bowel syndrome, hemorrhoids Hepatic: NONE Renal: NONE Musculoskeletal: NONE Psychiatric: anxiety Endocrine: NONE Blood Disorders: NONE Cancer(s): NONE 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 pylori, distal esophageal bx showed unremarkable squamous mucosa without increased eosinophils 06/24/17 US- homogenous liver, no gallstones, nl gallbladder, cbd-6mm, visualized pancreas was normal in appearance 06/24/17 Ct scan w/IV contrast:no evidence of bowel obstruction; possible GB sludge, tiny fat containing umbillical hernia 07/14/17 HIDA scan:[id number], patent CBD 2013 EGD-irregular z line and small HH; neg gastric and GEJ bx Surgical History Surgical History: 1 Family History Relations & Conditions If Any: MOTHER FH: diabetes mellitus FH: hypertension FATHER FH: diabetes mellitus FH: hypertension Psychosocial History ETOH Use: denies use Illicit Drug Use: denies illicit drug use Functional Ability ADLs Independent: dressing, eating, toileting, bathing. Ambulation: independent IADLs Independent: shopping, housework, finances, food prep, telephone, transportation , medication admin. Review of Systems Review of Systems Constitutional: Reports: malaise, weakness. Denies: chills, diaphoresis, fever, unexplained weight loss. EENTM: Denies: no symptoms. Cardiovascular: Reports: chest pain. Denies: orthopena, peripheral edema, syncope. Respiratory: Denies: no symptoms. GI: Reports: see HPI. Genitourinary: Denies: no symptoms. Musculoskeletal: Denies: no symptoms. Skin: Denies: no symptoms. Neurological/Psychological: Reports: anxiety. Hematologic/Endocrine: Denies: no symptoms. Immunologic/Allergic: Denies: no symptoms. All Other Systems: Reviewed and Negative Exam & Diagnostic Data Vital Signs and I&O Vital Signs Date Time Temp Pulse Resp B/P B/P Pulse O2 O2 Flow FiO2 Mean Ox Delivery Rate 01/30 1601 98.2 88 18 142/86 98 Room Air Room Air 01/30 1434 99.0 86 20 140/83 100 Room Air 01/30 1212 98.4 72 18 118/65 100 Room Air 01/30 1014 72 16 135/88 99 Room Air 01/30 0738 97.4 80 20 138/97 998 Room Air Intake & Output 01/30 1600 01/30 0400 01/29 1600 01/29 0400 01/28 1600 01/28 0400 Intake Total 1100 Output Total Balance 1100 Intake, IV 1100 Patient 200 lb Weight Weight Reported by Patient Measurement Method Physical Exam General Appearance: moderate distress Head: atraumatic, normal appearance Results Pertinent Lab Results: Laboratory Tests 01/30 01/30 1140 0800 Chemistry Sodium (137 - 145 mmol/L) 144 Potassium (3.5 - 5.1 mmol/L) 3.7 Chloride (98 - 107 mmol/L) 107 Carbon Dioxide (22 - 30 mmol/L) 23 Anion Gap (5 - 16) 13 BUN (7 - 17 mg/dL) 18 H Creatinine (0.5 - 1.0 mg/dL) 0.6 Estimated GFR (>60 ml/min) > 60 BUN/Creatinine Ratio (7 - 25 %) 30.0 H Glucose (65 - 99 mg/dL) 142 H Lactic Acid (0.7 - 2.1 mmol/L) 1.2 Calcium (8.4 - 10.2 mg/dL) 9.7 Total Bilirubin (0.2 - 1.3 mg/dL) 0.9 AST (14 - 36 U/L) 16 ALT (9 - 52 U/L) 20 Alkaline Phosphatase (<127 U/L) 64 Total Protein (6.3 - 8.2 g/dL) 7.2 Albumin (3.5 - 5.0 g/dL) 4.6 Globulin (1.9 - 4.2 gm/dL) 2.6 Albumin/Globulin Ratio (1.1 - 2.2 %) 1.8 Amylase (30 - 110 U/L) 83 Lipase (23 - 300 U/L) 112 Total Beta HCG (NEGATIVE) NEGATIVE Hematology CBC w Diff NO MAN DIFF REQ WBC (4.8 - 10.8 /CUMM) 8.0 RBC (4.20 - 5.40 /CUMM) 4.84 Hgb (12.0 - 16.0 G/DL) 15.2 Hct (37 - 47 %) 44.1 MCV (81.0 - 99.0 FL) 91.1 MCH (27.0 - 31.0 PG) 31.4 H MCHC (33.0 - 37.0 G/DL) 34.5 RDW (11.5 - 14.5 %) 13.6 Plt Count (130 - 400 /CUMM) 298 MPV (7.4 - 10.4 FL) 7.0 L Gran % (42.2 - 75.2 %) 86.0 H Lymphocytes % (20.5 - 51.1 %) 8.2 L Monocytes % (1.7 - 9.3 %) 5.1 Eosinophils % (0 - 5 %) 0.3 Basophils % (0.0 - 2.0 %) 0.4 Absolute Granulocytes (1.4 - 6.5 /CUMM) 6.9 H Absolute Lymphocytes (1.2 - 3.4 /CUMM) 0.7 L Absolute Monocytes (0.10 - 0.60 /CUMM) 0.4 Absolute Eosinophils (0.0 - 0.7 /CUMM) 0 Absolute Basophils (0.0 - 0.2 /CUMM) 0 Toxicology Urine Opiates Screen (>2000 NG/ML) < 100 Methadone Screen (>300 NG/ML) < 40 Barbiturate Screen (>200 NG/ML) < 60 Ur Phencyclidine Scrn (>25 NG/ML) < 6.00 Amphetamines Screen (>1000 NG/ML) < 100 U Benzodiazepines Scrn (>200 NG/ML) < 85 Urine Cocaine Screen (>300 NG/ML) < 50 Urine Cannabis Screen (>50 NG/ML) > 80.00 H Urines Urine Color (YEL,AMB,STR) YEL Urine Clarity (CLEAR) CLEAR Urine pH (5.0 - 8.0) 8.0 Ur Specific [place] (1.001 - 1.035) 1.020 Urine Protein (NEG,<30 MG/DL) NEG Urine Ketones (NEG) 15 H Urine Nitrite (NEG) NEG Urine Bilirubin (NEG) NEG Urine Urobilinogen (0.1 - 1.0 EU/dl) 0.2 Ur Leukocyte Esterase (NEG) NEG Ur Microscopic SEDIMENT EXAMINED Urine RBC (0 - 5 /HPF) 1-3 Urine WBC (0 - 2 /HPF) RARE Ur Epithelial Cells (NONE,FEW) FEW Urine Bacteria (NEG/NONE) RARE H Urine Mucus (FEW,NONE) RARE Urine Hemoglobin (NEG) NEG Urine Glucose (N MG/DL) NEG Imaging/Other Studies: SERVICE DATE: 01/30/18 EXAM TYPE: CAT - CT ABD & PELVIS W IV CONTRAST EXAMINATION: CT ABDOMEN AND PELVIS WITH CONTRAST CLINICAL INFORMATION: Diffuse abdominal pain COMPARISON: Multiple prior CT abdomen and pelvis most recent prior dated 08/15/2017 TECHNIQUE: Multidetector volumetric imaging was performed of the abdomen and pelvis following IV administration of 95 mL of Optiray 320 intravenous contrast. Sagittal and coronal reformatted images were obtained on the technologist's workstation. DLP: 537.70 mGy-cm FINDINGS: LUNG BASES: The visualized lung bases are unremarkable. Small epicardiac lymph nodes noted again. Trace pericardial effusion noted again. LIVER, GALLBLADDER, AND BILIARY TREE: The liver is normal in size, shape, and attenuation. No focal hepatic lesion or biliary ductal dilatation is present. The gallbladder is unremarkable with no evidence of radiopaque gallstones, gallbladder wall thickening, or obvious pericholecystic inflammatory changes. PANCREAS: Unremarkable. SPLEEN: Unremarkable. ADRENAL GLANDS: Unremarkable. KIDNEYS AND URETERS: Stable tiny cortical low-attenuation posterior aspect mid left kidney too small to be accurately characterized. Symmetric bilateral renal enhancement and function. BLADDER: Punctate hyperdensity noted again along the right posterior wall of the urinary bladder likely representing adjacent tiny phlebolith (series 2 image 72). GASTROINTESTINAL TRACT: Small hiatal hernia noted again. No acute bowel pathology. Prominence of the fatty stratification/fat halo sign noted again in the ascending colon and transverse colon. These findings can be seen as a normal variation but can also be associated with inflammatory bowel disease. No gross evidence of abnormal wall thickness identified. Nondistended bowel loops are noted. ABDOMINAL WALL: No significant hernia is appreciated. LYMPH NODES: Normal. VASCULAR: Unremarkable. PELVIC VISCERA: Physiologic changes bilateral ovaries. No evidence of free fluid or abnormal fluid collection. OSSEOUS STRUCTURES: No acute osseous abnormality. No bony destructive changes. IMPRESSION: 1. Nonspecific fat halo sign involving the ascending and transverse colon also seen on the previous examinations. Although it has been described with inflammatory bowel disease, this finding can also be seen with obesity. Clinical correlation recommended. No acute bowel pathology. 2. Stable trace pericardial effusion. 3. Stable small hiatal hernia. Assessment/Plan Assessment/Recommendations: Assessment: Ms. palacios is a 37-year-old female with a history of IBS and reflux esophagitis who presented to the emergency room today with worsening/intractable vomiting/abdominal pain and persistent diarrhea. She had endoscopy in June 2017 which showed a hiatal hernia and erosive reflux esophagitis so as she is only taking her PPI about 2 times a week it is possible that some of her symptoms may be attributable to uncontrolled GERD, but I am not certain that that is what is causing all of her vomiting. Other potential etiologies of her vomiting could be gastroparesis possibly from a viral syndrome, cyclical vomiting syndrome, or as her urine tox screen was positive for marijuana it is also possible she may have cannabis-induced vomiting. Of note, if her symptoms were from cyclical vomiting syndrome I would've expected some improvement from the SSRI she is on. If no other obvious cause of her vomiting can be determined it may then be reasonable to strongly recommend a period of abstinence from marijuana to see if this helps her symptoms. I am uncertain as to the etiology of her diarrhea either, but as she reports having a negative colonoscopy within the past year it makes IBD less likely. She did have a CAT scan in the ER which showed fatty stratification/fat halo sign in the ascending colon and transverse colon which could be indicative of IBD, however it is more likely a false positive result unrelated to her body habitus. Recommendations: 1. Administer antiemetics as needed. 2. Analgesia with antispasmodics and/or narcotics as needed. 3. Advance diet as tolerated. 4. If she has diarrhea while here would send it for culture, O&P, C. difficile toxin, and fecal calprotectin. 5. Continue current SSRI 6. Give IV protonix 40 mg bid for 24 hours and then change to po dosing bid for a few weeks and then daily dosing. 7. Anti-reflux measures should be implemented. 8. Use imodium as needed for diarrhea. I will continue to follow this patient and make further recommendations based on her clinical course and results of repeat blood work and any stool testing if it is done. Problem List: 1. Vomiting 2. Gastroenteritis 3. Nausea vomiting and diarrhea Consult Acknowledgment - Thank you for your consult request.
[2018-01-30 22:04] VITALS: BP 118/60
[2018-01-31 07:04] VITALS: BP 126/66
--- NOTE | 2018-01-31 11:01 | PN- Gastroenterology ---
Assessment/Plan GI Assessment/Recommendations: Assessment: Ms. Sow is a 37 year old female admitted with intractable nausea , vomiting and abdominal pain of uncertain etiology, but I suspect it is multifactorial and related to suboptimally controlled GERD, functional abdominal pain and possible CVS or canibis induced emesis. Regardless, she is symptomatically improved this morning so hopefully her diet can be advanced and she can be converted over to oral medications so she can be discharged for further evaluaton as an outpatient. Recommendations: 1. Advance diet as tolerated. 2. Administer anti-emetics as needed 3. Give one more dose of IV protonix today and then change to a po ppi bid for 2 weeks and then daily dosing and she should be instructed to take it regularly 30 minutes before her first meal of the day 4. If she has diarrhea as an inpatient would check stool studies. 5. Continue hyoscyamine as needed for pain and attempt to minimize narcotic use 6. If pt is able to tolearte a diet and her other symptoms are able to maintained with oral medications consideration should be given to discharge her home later today or in the am. I will continue to follow this patient and make further recommendations based on her clinical course and results of repeat blood work and any stool testing if it is done. Problem List: 1. Abdominal pain 2. Vomiting 3. Nausea vomiting and diarrhea Subjective Subjective: pt complaining of nausea and a headache this morning. She notes the abdominal pain and vomiting have improved. She hasn't had any diarrhea since she has been here which she attrbutes to being made NPO. She is asking if she can go home today. Objective Vital Signs and I&Os Vital Signs Date Time Temp Pulse Resp B/P B/P Pulse O2 O2 Flow FiO2 Mean Ox Delivery Rate 01/31 0831 124/82 01/31 0704 99.4 96 18 126/66 96 Room Air 01/30 2204 99.1 117 18 118/60 97 Room Air 01/30 1601 98.2 88 18 142/86 98 Room Air Room Air 01/30 1434 99.0 86 20 140/83 100 Room Air 01/30 1212 98.4 72 18 118/65 100 Room Air Intake & Output 01/31 1600 01/31 0400 01/30 1600 01/30 0400 01/29 1600 01/29 0400 Intake Total 163 701 9395 Output Total Balance 146 226 1269 Intake, IV 633 943 4531 Patient 213 lb 213 lb Weight Weight Bed scale Bed scale Measurement Method Physical Exam General Appearance: mild distress Head: atraumatic, normal appearance Ears, Nose, Throat: normal pharynx Respiratory: normal breath sounds Cardiovascular: regular rate/rhythm Abdomen: normal bowel sounds, soft, tenderness Back: normal inspection Neurologic/Psychiatric: no motor/sensory deficits, awake, alert, oriented x 3 Current Medications: Current Medications Sig/Shravan Start time Last Medication Dose Route Stop Time Status Admin Citalopram 10 MG DAILY 01/31 0900 AC 01/31 Hydrobromide PO 0831 Clonazepam 0.5 MG BID PRN 01/30 1545 AC PO 02/06 1544 Enoxaparin Sodium 40 MG DAILY 01/31 0900 AC SC Hyoscyamine 0.125 MG Q4 HRS NEEDED PRN 01/30 1545 AC 01/30 PO 2032 Ketorolac 0 .STK-MED ONE 01/30 1431 DC Tromethamine .ROUTE Ketorolac 15 MG ONCE ONE 01/30 1415 DC 01/30 Tromethamine IV 01/30 1416 1436 Loperamide HCl 2 MG Q3P PRN 01/31 2000 AC PO Losartan Potassium 25 MG DAILY 01/31 0900 AC 01/31 PO 0831 Metoclopramide HCl 10 MG 4 TIMES/DAY PRN 01/30 1545 AC 01/31 PO 1025 Metoclopramide HCl 0 .STK-MED ONE 01/30 1132 DC .ROUTE Metoclopramide HCl 10 MG ONCE ONE 01/30 1115 DC 01/30 IV 01/30 1116 1127 Morphine Sulfate 2 MG Q6P PRN 01/30 1615 AC 01/31 IV 0634 Morphine Sulfate 0 .STK-MED ONE 01/30 1520 DC .ROUTE Morphine Sulfate 2 MG ONCE ONE 01/30 1515 DC 01/30 IV 01/30 1516 1521 Morphine Sulfate 2 MG ONCE ONE 01/30 1415 CAN IV 01/30 1416 Omeprazole 40 MG 1/2H B/BREAKF/DINNER 01/31 1630 AC PO Pantoprazole Sodium 40 MG DAILY 01/31 2000 DC 01/31 IV 01/31 0901 0831 Sodium Chloride 1,000 ML .[id number] 01/30 1430 AC 01/31 IV 0209 Results Pertinent Lab Results: Laboratory Tests 04/20 04/20 1140 0800 Chemistry Sodium (137 - 145 mmol/L) 144 Potassium (3.5 - 5.1 mmol/L) 3.7 Chloride (98 - 107 mmol/L) 107 Carbon Dioxide (22 - 30 mmol/L) 23 Anion Gap (5 - 16) 13 BUN (7 - 17 mg/dL) 18 H Creatinine (0.5 - 1.0 mg/dL) 0.6 Estimated GFR (>60 ml/min) > 60 BUN/Creatinine Ratio (7 - 25 %) 30.0 H Glucose (65 - 99 mg/dL) 142 H Lactic Acid (0.7 - 2.1 mmol/L) 1.2 Calcium (8.4 - 10.2 mg/dL) 9.7 Total Bilirubin (0.2 - 1.3 mg/dL) 0.9 AST (14 - 36 U/L) 16 ALT (9 - 52 U/L) 20 Alkaline Phosphatase (<127 U/L) 64 Total Protein (6.3 - 8.2 g/dL) 7.2 Albumin (3.5 - 5.0 g/dL) 4.6 Globulin (1.9 - 4.2 gm/dL) 2.6 Albumin/Globulin Ratio (1.1 - 2.2 %) 1.8 Amylase (30 - 110 U/L) 83 Lipase (23 - 300 U/L) 112 Total Beta HCG (NEGATIVE) NEGATIVE Hematology CBC w Diff NO MAN DIFF REQ WBC (4.8 - 10.8 /CUMM) 8.0 RBC (4.20 - 5.40 /CUMM) 4.84 Hgb (12.0 - 16.0 G/DL) 15.2 Hct (37 - 47 %) 44.1 MCV (81.0 - 99.0 FL) 91.1 MCH (27.0 - 31.0 PG) 31.4 H MCHC (33.0 - 37.0 G/DL) 34.5 RDW (11.5 - 14.5 %) 13.6 Plt Count (130 - 400 /CUMM) 298 MPV (7.4 - 10.4 FL) 7.0 L Gran % (42.2 - 75.2 %) 86.0 H Lymphocytes % (20.5 - 51.1 %) 8.2 L Monocytes % (1.7 - 9.3 %) 5.1 Eosinophils % (0 - 5 %) 0.3 Basophils % (0.0 - 2.0 %) 0.4 Absolute Granulocytes (1.4 - 6.5 /CUMM) 6.9 H Absolute Lymphocytes (1.2 - 3.4 /CUMM) 0.7 L Absolute Monocytes (0.10 - 0.60 /CUMM) 0.4 Absolute Eosinophils (0.0 - 0.7 /CUMM) 0 Absolute Basophils (0.0 - 0.2 /CUMM) 0 Toxicology Urine Opiates Screen (>2000 NG/ML) < 100 Methadone Screen (>300 NG/ML) < 40 Barbiturate Screen (>200 NG/ML) < 60 Ur Phencyclidine Scrn (>25 NG/ML) < 6.00 Amphetamines Screen (>1000 NG/ML) < 100 U Benzodiazepines Scrn (>200 NG/ML) < 85 Urine Cocaine Screen (>300 NG/ML) < 50 Urine Cannabis Screen (>50 NG/ML) > 80.00 H Urines Urine Color (YEL,AMB,STR) YEL Urine Clarity (CLEAR) CLEAR Urine pH (5.0 - 8.0) 8.0 Ur Specific [place] (1.001 - 1.035) 1.020 Urine Protein (NEG,<30 MG/DL) NEG Urine Ketones (NEG) 15 H Urine Nitrite (NEG) NEG Urine Bilirubin (NEG) NEG Urine Urobilinogen (0.1 - 1.0 EU/dl) 0.2 Ur Leukocyte Esterase (NEG) NEG Ur Microscopic SEDIMENT EXAMINED Urine RBC (0 - 5 /HPF) 1-3 Urine WBC (0 - 2 /HPF) RARE Ur Epithelial Cells (NONE,FEW) FEW Urine Bacteria (NEG/NONE) RARE H Urine Mucus (FEW,NONE) RARE Urine Hemoglobin (NEG) NEG Urine Glucose (N MG/DL) NEG
[2018-01-31 15:03] VITALS: BP 120/78
--- NOTE | 2018-01-31 16:28 | PN- Att Addend ---
Attending Addendum Attending Brief Note Patient seen and examined, feeling slightly better today. Less pain and less nauseous. She is hungry and requesting food. Vital Signs Date Time Temp Pulse Resp B/P B/P Pulse O2 O2 Flow FiO2 Mean Ox Delivery Rate 01/31 1503 98.8 90 18 120/78 97 Room Air 01/31 0831 124/82 01/31 0704 99.4 96 18 126/66 96 Room Air 01/30 2204 99.1 117 18 118/60 97 Room Air on exam; aox3, nad. cv; s1,s2, rrr resp; clear abd; soft, nt, bs+ ext; no edema No labs today. A/P: 37 y/o F with pmh sig for hiatal hernia, irritable bowel syndrome, hemorrhoids admitted with intractable nausea, vomiting diarrhea as well as epigastric pain. Symptoms overall improved. No further nausea vomiting or diarrhea reported. Patient will be started on clear liquid diet that can be advanced as tolerated. Please follow further GI recommendations. If patient has diarrhea then will check for stool studies. Please switch her morphine to oral Percocet as needed. Continue hyoscyamine. Continue the rest of the medications. Patient on Lovenox for DVT prophylaxis.
[2018-01-31 22:31] VITALS: BP 114/80
[2018-02-01 07:29] VITALS: BP 128/86
--- NOTE | 2018-02-01 08:25 | PN- Housestaff ---
Subjective Follow-up For: Diarrhea Subjective: No acute events overnight. Patient states that she still has diarrhea. Review of Systems Constitutional: Reports: see HPI. Objective Last 24 Hrs of Vital Signs/I&O Vital Signs Date Time Temp Pulse Resp B/P B/P Pulse O2 O2 Flow FiO2 Mean Ox Delivery Rate 02/01 1449 98.2 73 16 125/91 97 Room Air 02/01 1006 86 126/80 02/01 0729 98.3 86 20 128/86 99 Intake & Output 02/01 1600 02/01 0800 02/01 0000 Intake Total 1000 240 240 Output Total Balance 1000 240 240 Intake, Oral 1000 240 240 Number 3 Bowel Movements Physical Exam General Appearance: Alert, Oriented X3, Cooperative Cardiovascular: Regular Rate, Normal S1, Normal S2 Lungs: Clear to Auscultation, Normal Air Movement Abdomen: Normal Bowel Sounds, Soft, No Tenderness Extremities: 2+ radial pulses Assessment/Plan Assessment: Ms. Sow is a 37-year-old female with past medical history of hiatal hernia, irritable bowel syndrome followed by Dr. Pedraza, and anxiety who presents with nausea and vomiting and diarrhea She will be admitted to general medicine and treated for following problems: 1. Likely gastroenteritis #Diarrhea most likely due to IBS vs gastroenteritis: Patient presents with nausea and vomiting after eating take-out. She does have a history of IBS. Afebrile with normal labs and imaging. Likely gastroenteritis given history versus IBS. Additionally, U tox positive for cannabis, potentially cyclical vomiting syndrome. -Able to tolerate regular diet. Patient will be discharged. -Discharged with omeprazole twice a day for 2 weeks and then daily as instructed per GI -Discharged with Reglan for nausea control. Patient states she has Zofran. States the Reglan works more effectively for her -Discharge with hyoscyamine for pain control. -Stool culture -Cannabis use counseling #Chronic medical problems: -Continued other home medications DVT prophylaxis with enoxaparin Full code Problem List: 1. Gastroenteritis 2. Nausea vomiting and diarrhea Pain Ratin Pain Location: abd pain Pain Goal: Pain 4 or less Pain Plan: hyoscyanmine Tomorrow's Labs & Rationales: none
[2018-02-01 08:32] LABS: ABSOLUTE BASOPHIL COUNT 0 /CUMM (0.0-0.2); ABSOLUTE EOSINOPHIL COUNT 0 /CUMM (0.0-0.7); ABSOLUTE GRANULOCYTE CT 2.3 /CUMM (1.4-6.5); ABSOLUTE LYMPH COUNT 1.7 /CUMM (1.2-3.4); ABSOLUTE MONOCYTE COUNT 0.7 /CUMM (0.10-0.60); BASOPHIL % 0.9 % (0.0-2.0); EOSINOPHIL % 1.1 % (0-5); GRANULOCYTE % 48.4 % (42.2-75.2); MEAN CORPUSCULAR HGB 31.2 PG (27.0-31.0); MEAN CORPUSCULAR HGB CONC 34.5 G/DL (33.0-37.0); MEAN CORPUSCULAR VOLUME 90.6 FL (81.0-99.0); MEAN PLATELET VOLUME 7.1 FL (7.4-10.4); PLATELET COUNT 257 /CUMM (130-400); RBC DISTRIBUTION WIDTH 13.3 % (11.5-14.5); RED BLOOD CELL CT 4.21 /CUMM (4.20-5.40); WHITE BLOOD CELL COUNT 4.7 /CUMM (4.8-10.8)
[2018-02-01 10:03] LABS: HEMATOCRIT 38.1 % (37-47)
--- NOTE | 2018-02-01 13:36 | PN- Att Addend ---
Attending Addendum Attending Brief Note Patient seen and examined, overall doing much better. Abdominal pain/nausea and vomiting have improved. She's tolerating full liquid diet and wants to advance the diet to solid. Vital Signs Date Time Temp Pulse Resp B/P B/P Pulse O2 O2 Flow FiO2 Mean Ox Delivery Rate 02/01 1006 86 126/80 02/01 0729 98.3 86 20 128/86 99 01/31 2231 98.9 90 16 114/80 99 Room Air 01/31 1503 98.8 90 18 120/78 97 Room Air on exam; aox3, nad. cv; s1,s2, rrr resp; clear abd; soft, nt, bs+ ext; no edema Laboratory Tests 02/01 0650 Chemistry Sodium (137 - 145 mmol/L) 141 Potassium (3.5 - 5.1 mmol/L) 3.5 Chloride (98 - 107 mmol/L) 103 Carbon Dioxide (22 - 30 mmol/L) 24 Anion Gap (5 - 16) 14 BUN (7 - 17 mg/dL) 13 Creatinine (0.5 - 1.0 mg/dL) 0.7 Estimated GFR (>60 ml/min) > 60 BUN/Creatinine Ratio (7 - 25 %) 18.6 Glucose (65 - 99 mg/dL) 98 Calcium (8.4 - 10.2 mg/dL) 9.1 Total Bilirubin (0.2 - 1.3 mg/dL) 0.6 AST (14 - 36 U/L) 13 L ALT (9 - 52 U/L) 17 Alkaline Phosphatase (<127 U/L) 47 Total Protein (6.3 - 8.2 g/dL) 6.1 L Albumin (3.5 - 5.0 g/dL) 3.6 Globulin (1.9 - 4.2 gm/dL) 2.5 Albumin/Globulin Ratio (1.1 - 2.2 %) 1.4 Hematology CBC w Diff NO MAN DIFF REQ WBC (4.8 - 10.8 /CUMM) 4.7 L RBC (4.20 - 5.40 /CUMM) 4.21 Hgb (12.0 - 16.0 G/DL) 13.1 Hct (37 - 47 %) 38.1 MCV (81.0 - 99.0 FL) 90.6 MCH (27.0 - 31.0 PG) 31.2 H MCHC (33.0 - 37.0 G/DL) 34.5 RDW (11.5 - 14.5 %) 13.3 Plt Count (130 - 400 /CUMM) 257 MPV (7.4 - 10.4 FL) 7.1 L Gran % (42.2 - 75.2 %) 48.4 Lymphocytes % (20.5 - 51.1 %) 35.2 Monocytes % (1.7 - 9.3 %) 14.4 H Eosinophils % (0 - 5 %) 1.1 Basophils % (0.0 - 2.0 %) 0.9 Absolute Granulocytes (1.4 - 6.5 /CUMM) 2.3 Absolute Lymphocytes (1.2 - 3.4 /CUMM) 1.7 Absolute Monocytes (0.10 - 0.60 /CUMM) 0.7 H Absolute Eosinophils (0.0 - 0.7 /CUMM) 0 Absolute Basophils (0.0 - 0.2 /CUMM) 0 A/P: 37 y/o F with pmh sig for hiatal hernia, irritable bowel syndrome, hemorrhoids admitted with intractable nausea, vomiting diarrhea as well as epigastric pain. Overall doing much better. No further nausea vomiting diarrhea abdominal pain. Tolerating full liquid diet. We'll advance to solid diet and if tolerates well then can be discharged after dinner. We'll keep the PPI and hyoscyamine as needed.
[2018-02-01] MEDS ORDERED: OMEPRAZOLE40 M1 PO ×3 (13:45→14:03)
--- NOTE | 2018-02-01 13:47 | Patient Discharge Instructions ---
Discharge Instructions General Discharge Information Special Instructions: Please follow up with your pcp in 1 week. Please take your omeprazole twice a day for 2 weeks then take it once daily. Acute Coronary Syndrome Inclusion Criteria At DC or during hospital stay patient has or had the following: ACS DIAGNOSIS No Discharge Core Measures Meds if any: Prescribed or Continued at Discharge Meds if any: NOT Prescribed or Continued at Discharge Congestive Heart Failure Inclusion Criteria At DC or during hospital stay patient has or had the following: CHF DIAGNOSIS No Discharge Core Measures Meds if any: Prescribed or Continued at Discharge Meds if any: NOT Prescribed or Continued at Discharge Cerebrovascular accident Inclusion Criteria At DC or during hospital stay patient has or had the following: CVA/TIA Diagnosis No Discharge Core Measures Meds if any: Prescribed or Continued at Discharge Meds if any: NOT Prescribed or Continued at Discharge Venous thromboembolism Inclusion Criteria VTE Diagnosis No VTE Type NONE VTE Confirmed by (Test) NONE Discharge Core Measures - Per Current guidelines, there needs to be overlap - treatment for the first 5 days of Warfarin therapy. - If discharged on Warfarin prior to 5 days of - overlap therapy, the patient will need to be - assessed for post discharge needs including - *Post discharge parental anticoagulation - *Warfarin and/or parental anticoagulation education - *Follow up date to check INR post discharge At least 5 days overlap therapy as Inpatient No Meds if any: Prescribed or Continued at Discharge Note: Overlap Therapy is Warfarin and Anticoagulant Meds if any: NOT Prescribed or Continued at Discharge
[2018-02-01] MEDS ORDERED: REGLAN10 M1 PO (14:03)
[2018-02-01] MEDS ORDERED: CELEXA10 M1 PO (14:08)
[2018-02-01] MEDS ORDERED: LEVSIN0.125 M1 PO (14:09)
[2018-02-01 14:49] VITALS: BP 125/91
--- NOTE | 2018-02-03 23:04 | Discharge Summary ---
Visit Information Visit Dates Admission Date: 01/30/18 Discharge Date: 02/01/18 Hospital Course Course Attending Physician: Foreign VARGASKisha Primary Care Physician: Milo VARGAS,[facility] Course: A: 37-year-old female with past medical history of hiatal hernia, irritable bowel syndrome followed by Dr. Pedraza, and anxiety who presents with nausea and vomiting and diarrhea Problems: #Diarrhea most likely due to IBS vs gastroenteritis The patient presented with nausea and vomiting after eating take-out. She does have a history of IBS. She was initially afebrile with normal labs and imaging. Additionally, utox was positive for cannabis, potentially cyclical vomiting syndrome. CT abd revealed nonspecific halo sign seen in prior studies, trace pericardial effusion, and stable hiatal hernia. She was originally started with a full liquid diet. Her abd pain, naseau and diarrhea were controlled and she was able to tolerate a regular diet the next day. Stool cultures were negative. She was started on IV protonix per GI. She was discharged with reglan and zofran for naseau control, BID omeprazole x2 weeks then single daily dosing, and hyoscyamine for pain control. She was advised to follow up with her pcp/GI (Dr. Pedraza) in 1 week. She was advised with canabis counseling. #Hx of htn Continued losartan #Mental health Continued Celexa, clonazepam Allergies: Coded Allergies: No Known Allergies (06/23/17) Pertinent Lab Results: EXAM TYPE: CAT - CT ABD & PELVIS W IV CONTRAST EXAMINATION: CT ABDOMEN AND PELVIS WITH CONTRAST CLINICAL INFORMATION: Diffuse abdominal pain COMPARISON: Multiple prior CT abdomen and pelvis most recent prior dated 08/15/2017 TECHNIQUE: Multidetector volumetric imaging was performed of the abdomen and pelvis following IV administration of 95 mL of Optiray 320 intravenous contrast. Sagittal and coronal reformatted images were obtained on the technologist's workstation. DLP: 537.70 mGy-cm FINDINGS: LUNG BASES: The visualized lung bases are unremarkable. Small epicardiac lymph nodes noted again. Trace pericardial effusion noted again. LIVER, GALLBLADDER, AND BILIARY TREE: The liver is normal in size, shape, and attenuation. No focal hepatic lesion or biliary ductal dilatation is present. The gallbladder is unremarkable with no evidence of radiopaque gallstones, gallbladder wall thickening, or obvious pericholecystic inflammatory changes. PANCREAS: Unremarkable. SPLEEN: Unremarkable. ADRENAL GLANDS: Unremarkable. KIDNEYS AND URETERS: Stable tiny cortical low-attenuation posterior aspect mid left kidney too small to be accurately characterized. Symmetric bilateral renal enhancement and function. BLADDER: Punctate hyperdensity noted again along the right posterior wall of the urinary bladder likely representing adjacent tiny phlebolith (series 2 image 72). GASTROINTESTINAL TRACT: Small hiatal hernia noted again. No acute bowel pathology. Prominence of the fatty stratification/fat halo sign noted again in the ascending colon and transverse colon. These findings can be seen as a normal variation but can also be associated with inflammatory bowel disease. No gross evidence of abnormal wall thickness identified. Nondistended bowel loops are noted. ABDOMINAL WALL: No significant hernia is appreciated. LYMPH NODES: Normal. VASCULAR: Unremarkable. PELVIC VISCERA: Physiologic changes bilateral ovaries. No evidence of free fluid or abnormal fluid collection. OSSEOUS STRUCTURES: No acute osseous abnormality. No bony destructive changes. IMPRESSION: 1. Nonspecific fat halo sign involving the ascending and transverse colon also seen on the previous examinations. Although it has been described with inflammatory bowel disease, this finding can also be seen with obesity. Clinical correlation recommended. No acute bowel pathology. 2. Stable trace pericardial effusion. 3. Stable small hiatal hernia. Disposition Summary Disposition Principal Diagnosis: Diarrhea most likely due to IBS vs gastroenteritis Additional Diagnosis: none Discharge Disposition: home or self care Discharge Instructions General Discharge Information Code Status: Full Code Patient's Diet: Regular Patient's Activity: As tolerated Follow-Up Instructions/Appts: Please follow up with your pcp in 1 week. Please take your omeprazole twice a day for 2 weeks then take it once daily. Medications at Discharge Discharge Medications: Stop taking the following medications: Ondansetron (Zofran Odt) 4 MG TAB.RAPDIS SUBLINGUAL THREE TIMES DAILY Qty = 10 Promethazine HCl (Promethazine HCl) 25 MG TABLET ORAL EVERY SIX HOURS NEEDED as needed for NAUSEA Qty = 15 Dicyclomine Hydrochloride (Bentyl) 10 MG CAPSULE ORAL THREE TIMES DAILY Qty = 15 Hyoscyamine (Levsin) 0.125 MG TABLET ORAL Every 4 hours as needed for ABDOMINAL PAIN Qty = 20 Continue taking these medications: Medroxyprogesterone Acetate (Medroxyprogesterone Acetate) 150 MG/1 ML SYRINGE 1 Milliliters INTRAMUSC Every 3 months Qty = 1 Comments: NOT GIVEN IN HOSPITAL Losartan Potassium (Losartan Potassium) 25 MG TABLET 1 Tablet ORAL DAILY Qty = 45 Comments: Last Taken: 02/01/18 Time: 10:00 AM Clonazepam (Klonopin) 0.5 MG TABLET 1 Tablet ORAL 2 x Daily as needed as needed for ANXIETY Comments: Last Taken: 02/01/18 Time: 6:00 AM Ondansetron (Ondansetron Odt) 4 MG TAB.RAPDIS 1 Tablet SUBLINGUAL THREE TIMES DAILY as needed for NAUSEA/VOMITING Comments: NOT GIVEN IN HOSPITAL Citalopram Hydrobromide (Celexa) 10 MG TABLET 1 Tablet ORAL DAILY Qty = 30 Comments: Last Taken: 02/01/18 Time: 10:00 AM Hyoscyamine (Levsin) 0.125 MG TABLET 1 Tablet ORAL Every 4 hours as needed for ABDOMINAL PAIN Qty = 20 Comments: Last Taken: 01/30/18 Time: 8:30 PM This prescription has been renewed Start taking the following new medications: Metoclopramide HCl (Reglan) 10 MG TABLET 1 Tablet ORAL 4 TIMES A DAY as needed for NAUSEA Qty = 20 No Refills Instructions: 30 minutes before meals and bedtime Comments: Last Taken: 02/01/18 Time: 12:30 PM Omeprazole (Omeprazole) 40 MG CAPSULE.DR 1 Capsule ORAL 1/2 HR BEFORE BREAKFAST/DINNER Qty = 28 No Refills Instructions: TAKE 2X A DAY FOR 2 WEEKS. THEN TAKE ONCE DAILY TAKE 30 MINUTES B4 BREAKFAST+DINNER Comments: Last Taken: 02/01/18 Time: 5:30 AM Omeprazole (Omeprazole) 40 MG CAPSULE.DR 1 Capsule ORAL DAILY Qty = 30 No Refills Instructions: PLEASE FINISH TWICE A DAY PERSCRIPTION. THEN TAKE ONCE DAILY Copies To: Milo VARGAS,[facility]
== END 2018-02-01 19:19 | DRG 249 ==
LOC: ERH 07:35 → ERHI 13:33 → ENRESERV 14:10 → ENTRNSPT 15:26 → EDTRNSPT 15:30 → EDTRNSPTSTS 15:30 → 2NB 15:46 → CMPTRNSPT 16:00 → ENPENDDIS 02-01 14:12 → 2NB 02-01 19:19
PROVIDERS: Emergency Medicine; Radiology Vascular & Interventional Radiology
DX: K52.9 Noninfective gastroenteritis and colitis, unspecified (principal); K58.9 Irritable bowel syndrome, unspecified; K44.9 Diaphragmatic hernia without obstruction or gangrene; I10 Essential (primary) hypertension; K64.9 Unspecified hemorrhoids; R11.2 Nausea with vomiting, unspecified; R10.13 Epigastric pain; F41.9 Anxiety disorder, unspecified
CPT/HCPCS: 2NBP; 36415; 74177; 80307; 81001; 87045; 93005; 93010; 96365; 96366; 96375; J0131; J1650; J1885; J2405; J2550; J2765